=== PATIENT | female | born 1985 | race Caucasian/White ===

== ENCOUNTER 2018-01-28 15:30 | Outpatient (RCR) | payer BC, SELFPAY | END 2018-01-28 15:31 | disposition home or self-care (01) | LOC: PT 15:30 | PROVIDERS: Family Provider Emergency Medicine; PCP Emergency Medicine; Visit Provider Orthopaedic Surgery | DX: S83.241A Other tear of medial meniscus, current injury, right knee, initial encounter (principal) | CPT/HCPCS: 97014; 97016; 97110; G0283 ==

== ENCOUNTER → 2018-12-12 15:56 | Outpatient (CLI) | payer BC, SELFPAY ==
--- NOTE | 2018-12-12 16:02 | XR_ITS ---
EXAM: XR cervical spine 5V HISTORY: Neck pain and numbness down right arm ITS.REASON: pain ORDERING PHYSICIAN: Tiffanie Mackey PATIENT AGE: 33 years COMPARISON: None FINDINGS: There is slight reversal of the cervical lordosis. No malalignment apparent. No fracture or dislocation. The disc spaces are well-preserved. The foramina are widely patent. No significant degenerative change. No cervical ribs. There is mild widening of the space between the transverse process on the left at T1 and the superior aspect of the left first rib. It is uncertain whether this is new or chronic. There is mild upper thoracic scoliosis convex left which could feasibly cause some of this widening. IMPRESSION: 1. No acute fracture of the cervical spine. 2. Reversal lordosis which could be due to patient positioning or muscle spasm. 3. Mild upper thoracic scoliosis with mild widening of the first costo vertebral junction which is of questionable clinical significance and needs to be correlated with patient's symptoms and physical exam
== END ==
PROVIDERS: PCP Emergency Medicine; Visit Provider Nurse Practitioner Family
DX: M54.2 Cervicalgia (principal)
CPT/HCPCS: 72050

== ENCOUNTER 2019-01-02 15:00 | Outpatient (RCR) | payer BC, SELFPAY ==
--- NOTE | 2018-12-18 17:00 | HMH.PTOPEV ---
PT Outpatient Evaluation Rehab PT Outpatient Evaluation Start: 12/18/18 16:34 Freq: Status: Active Protocol: Document 12/18/18 16:34 STELLASTEPHENIE (Rec: 12/18/18 17:00 WALKER [id number]) Electronically Signed By Silvano Coe PT 12/18/18 16:34 Outpatient Therapy Subjective History Subjective History This is tneck and upper back pain.he initial Physical Therapy evaluation for Dory Jimenez. Pt is a 33 y/o female referred to PT for c/o neck and upper back pain. Pt reports an insidious onset of pain ~ 5 years ago, but reports significant increase in last 6 months. Chief Complaint Pain Stiff Symptom Type Ache Throb Sharp Stabbing Tingling Shooting Symptoms Relieved By Nothing Symptoms Aggravated By Lifting Prior Functional Limitations None Current Functional Limitations Lifting Sleeping Recreation Activity Symptom Description Constant but Variable Level of pain today (0-10) 4 Pain scale - at its best (0-10) 2 Pain scale - at its worst (0-10) 10 Cervical Eval Palpation Cervical Muscles R Cervical Paraspinal L Cervical Paraspinal R Upper Trapezius L Upper Trapezius Cervical/Thoracic Palpation Findings Tenderness Spasm Passive Joint Mobility Cervical PIVM Inc: R C2/3 R C3/4 R C5/6 R C6/7 AROM Cervical Spine Extension Active Range of 60 Motion (degrees) Cervical Spine Flexion Active Range of 40 Motion (degrees) Cervical Spine Right Lateral Flexion 40 Active Range of Motion (degrees) Cervical Spine Left Lateral Flexion 40 Active Range of Motion (degrees) Cervical Spine Right Rotation Active 70 Range of Motion (degrees) Cervical Spine Left Rotation Active 70 Range of Motion (degrees) MMT Bilateral Deltoid (C5) 5 Normal Biceps Brachii Strength Grade 5 Normal Wrist Extension Strength Grade 5 Normal Triceps Brachii Strength Grade 5 Normal Wrist Flexion Strength Grade 5 Normal DTR Rt Bic
== END 2019-01-02 15:05 | disposition home or self-care (01) ==
LOC: PT 15:00
PROVIDERS: Visit Provider Nurse Practitioner Family
DX: M54.2 Cervicalgia (principal)
CPT/HCPCS: 97010; 97014; 97110; 97163; G0283

== ENCOUNTER 2021-01-23 13:08 | Emergency (ER) | payer BC, SELFPAY ==
[2021-01-23] VITALS (8 sets, daily range): BP systolic 105–136; BP diastolic 63–91; PULSE 59–84; RESP 16–20; TEMP 36.7; O2SAT 97–100; BMI 33.2
--- NOTE | 2021-01-23 13:03 | ECG_ITS ---
APPROVED REPORT Exam: Resting ECG HR:71 bpm ECG Measurements Heart Rate 71 AXES AR 152 P 37 QRSd 84 QRS 45 QT 394 T 61 QTc 428 Conclusion Normal sinus rhythm with sinus arrhythmia Normal ECG Electronically signed by : Raymond Miller, 01/23/2021 20:24:21
--- NOTE | 2021-01-23 13:18 | XR_ITS ---
PROCEDURE: XR CHEST PORTABLE CLINICAL HISTORY: chest pain COMPARISON: No exams were available for comparison FINDINGS: The cardiomediastinal silhouette and pulmonary vascularity are within normal limits. The lungs are clear without infiltrates, suspicious nodules, or pleural effusions. No acute bony abnormalities. IMPRESSION: No acute findings. Dictated by: Surya Ballesteros MD 01/24/2021 05:56 Surya Ballesteros MD in [place] 01/24/2021 05:56
--- NOTE | 2021-01-23 13:22 | HMH.EDGENADL ---
ED Disposition Clinical Impression: Pleurodynia Thoracic aortic aneurysm Qualifiers: Presence of rupture: without rupture Qualified Code(s): I71.2 - Thoracic aortic aneurysm, without rupture Disposition: Home, Self-Care Condition on Discharge: Fair Instructions: DI for Atypical Chest Pain, DI for Pleurisy, DI for Aortic Aneurysm Additional Instructions: Follow-up with [facility] cardiothoracic surgery, Dr. Rendon. Call tomorrow to make appointment. [phone]. Prednisone as prescribed. [place] as needed for pain. Additional instructions for CHEST PAIN: See your physician as soon as possible for further evaluation. Return immediately if worsening chest pain, vomiting, shortness of breath, fever, coughing of blood. Additional instructions for CONTROLLED SUBSTANCES: You have been prescribed a medication that is a controlled substance. Controlled substances include pain medications known as opiates and sedative nerve medications known as benzodiazepines. Tramadol, fioricet, and gabapentin are also controlled substances. Some common opiates include: Codeine (such as Tylenol #3) Hydrocodone (Vicodin, Lortab, Lorcet, [place]) Oxycodone (Percocet, Percodan, Oxycodone, Oxy IR) Some common benzodiazepines include: Diazepam (Valium) Lorazepam (Ativan) Alprazolam (Xanax) Clonazepam (Klonopin) Oxazepam (Serax) All of these controlled substances are highly addictive and frequently abused. Misuse can and frequently does lead to addiction as well as overdose and . Medication should be stored in a locked cabinet or other secure storage unit. Do not store the medication in a motor vehicle. Short term supplies, 3 days or less, are prescribed because of the highly addictive nature of the medication. Any of the controlled substance medication NOT taken should be disposed of properly and NOT SAVED. The recommended method of disposing of unused medications is: Place the medicines in a sealable plastic bag. If the medicine is a solid, crush it or add water to dissolve it. Add something undesirable (cat litter, coffee grounds, etc.) Dispose of sealed bag in household trash Do not flush or pour unused medicines down a sink or drain. Controlled substances should not be shared, given away or sold. Because of the addictive nature and frequent abuse, these medications are sometimes stolen. These medications should be kept in a safe place where they cannot be stolen. Do not keep them in your car or purse. Lost or stolen prescriptions for controlled substances WILL NOT BE REFILLED in this emergency department, regardless of whether a police report was filed. Prescriptions: Hydrocod/Acet 5/325 mg [[place] 5/325mg tablet] 1 tab PO Q6HP PRN #10 tab PRN Reason: Pain Transmission Status: Sent to [id number] predniSONE [Prednisone 20mg Tab] 20 mg PO BID #10 tab Transmission Status: Pending to [id number] Referrals: PCP,No [Non-Staff] - - Critical Care Critical Care Time: No Attestation: On 01/23/21, the high probability of a clinically significant, sudden or life threatening deterioration of the following system(s) required my full and direct attention, intervention and personal management. The time I documented below is in addition to time spent performing reported procedures but includes the following listed in this critical care notation. Medical Decision Making - Cruzito Inquiry Pt receiving controlled substance: No Vital Signs: 01/23/21 13:09 01/23/21 13:35 01/23/21 14:04 Temperature 98.0 F Temperature Source Oral Pulse Rate [Right Radial] 73 75 69 Respiratory Rate 18 20 17 Blood Pressure [Right Arm] 133/88 105/63 L 106/66 L Blood Pressure Mean [Right Arm] 103 77 79 Blood Pressure Source [Right Arm] Automatic Cuff Blood Pressure Position [Right Arm] Sitting 02 Sat by Pulse Oximetry 100 97 97 Oxygen Delivery Method Room Air 01/23/21 15
[2021-01-23 13:28] LABS: Basophils % 0.5 % (0.1-2.0); Eosinophils # 0.3 K/mm3 (0.0-0.4); Eosinophils % 4.6 % (0.1-12.0); Hematocrit 40.8 % (37.0-47.0); Hemoglobin 13.8 g/dL (12.2-16.2); Lymphocytes # 1.8 K/mm3 (0.7-4.5); Lymphocytes % 24.8 % (10-50); Mean Corpuscular HGB Conc 33.9 g/dL (31.8-35.4); Mean Corpuscular Hemoglobin 29.8 pg (27.0-31.2); Mean Corpuscular Volume 87.9 fl (81-99); Mean Platelet Volume 9.6 fl (7.4-10.4); Monocytes # 0.3 K/mm3 (0.1-1.0); Monocytes % 3.9 % (1.7-9.3); Neutrophils # 4.7 K/mm3 (1.8-7.8); Platelet Count 217 K/mm3 (142-424); Red Blood Count 4.64 M/mm3 (4.20-5.40); Red Cell Distribution Width 13.5 % (11.5-17.5); White Blood Count 7.1 K/mm3 (4.8-10.8)
[2021-01-23 13:32] LABS: Chloride 105 mmol/L (98-107); Sodium 140 mmol/L (136-145)
[2021-01-23 13:35] LABS: Blood Urea Nitrogen 16 mg/dl (7-17); Calcium 9.4 mg/dl (8.4-10.2); Carbon Dioxide 27 mmol/L (22.0-30.0); Creatinine Clearance Estimated 172 mL/min (50-200); Estimated Glomerular Filt Rate 82 ml/min (>60); GFR (African American) 99 ML/MIN (>60); Glucose 105 mg/dl (74-100)
[2021-01-23 13:36] LABS: Lipase 83 U/L (23-300)
[2021-01-23 13:48] LABS: Troponin I < 0.01 ng/ml (0.00-0.034)
--- NOTE | 2021-01-23 13:57 | CT_ITS ---
PROCEDURE: CT ANGIO CHEST CLINCIAL INDICATION: chest pain, elev d-dimer COMPARISON: No exams were available for comparison TECHNIQUE: IV Contrast: 70ML Isovue 370 Axial images obtained with sagittal and coronal reformats. All CT scans at the facility use one or more dose reduction, viz: automated exposure control, ma/kV adjustment per patient size (including targeted exams where dose is matched to indication, i.e. head), or iterative reconstruction technique. FINDINGS: HEART AND MEDIASTINAL STRUCTURES: No evidence of pulmonary embolus.. The thyroid gland is enlarged on both sides. There is substernal extension on the. The trachea is slightly deviated toward the right. There is prominence of the ascending thoracic aorta. The definite dimensions is difficult to evaluate due to un gated cardiac motion measuring 3.5-4 cm. On the axial images the ascending aorta measures up to 4.2 cm however, this may be falsely elevated due to the motion. LUNGS AND PLEURAL SPACES: Calcified granuloma left upper lobe. No lobar consolidation or collapse. BONY STRUCTURES: No acute bony abnormalities apparent. UPPER ABDOMEN: Unremarkable. ADDITIONAL FINDINGS: No other significant abnormalities. IMPRESSION: 1. No evidence of pulmonary embolus. 2. Prominence of the ascending aorta. Dimensions are difficult to accurately measure due to cardiac motion artifact. Consider CT angio of the aorta for more thorough evaluation. Dictated by: Surya Ballesteros MD 01/24/2021 07:27 Surya Ballesteros MD in [place] 01/24/2021 07:27
--- NOTE | 2021-01-23 15:53 | PC.NURSE ---
pt to CT
--- NOTE | 2021-01-23 17:43 | PC.NURSE ---
ESME BOWSER speaking with [facility]
[2021-01-23 17:49] LABS: Troponin I < 0.01 ng/ml (0.00-0.034)
== END 2021-01-23 18:41 | disposition home or self-care (01) ==
PROVIDERS: Emergency Provider Emergency Medicine; PCP Emergency Medicine
DX: R07.81 Pleurodynia (principal); I71.2 Thoracic aortic aneurysm, without rupture; F17.210 Nicotine dependence, cigarettes, uncomplicated; Z88.0 Allergy status to penicillin
CPT/HCPCS: 36415; 71045; 71275; 80048; 83690; 84484; 85025; 85378; 93005; 96374; 96375; 99283; J2405; Q9967

== ENCOUNTER → 2021-01-31 15:26 | Outpatient (CLI) | payer BC, SELFPAY ==
[2021-01-31 16:35] LABS: C-Reactive Protein 0.3 mg/L (0-4)
[2021-01-31 16:59] LABS: Thyroid Stimulating Hormone 7.39 uIU/mL (0.465-4.68)
[2021-01-31 17:00] LABS: Erythrocyte Sedimentation Rate 15 mm/hr (0-20)
== END ==
PROVIDERS: Visit Provider Emergency Medicine
DX: R07.81 Pleurodynia (principal); I71.2 Thoracic aortic aneurysm, without rupture
CPT/HCPCS: 84439; 84443; 85651; 86140

== ENCOUNTER → 2021-03-01 17:57 | Outpatient (CLI) | payer BC, SELFPAY ==
[2021-03-01 18:40] LABS: Free T4 (Free Thyroxine) 0.91 ng/dl (0.78-2.19)
[2021-03-01 18:54] LABS: Thyroid Stimulating Hormone 6.42 uIU/mL (0.465-4.68)
== END ==
PROVIDERS: Visit Provider Emergency Medicine
DX: Z00.00 Encounter for general adult medical examination without abnormal findings (principal); Z79.899 Other long term (current) drug therapy
CPT/HCPCS: 84439; 84443

== ENCOUNTER 2021-06-10 09:49 | Day surgery (SDC) | payer BC, SELFPAY ==
[2021-06-06 15:13] VITALS: BMI 34.0
--- NOTE | 2021-06-07 14:53 | SUR.PREOP ---
Discussed pt health history with Byron Reyes CRNA. Cardiac clearance is not needed per anesthesia for this patient.
[2021-06-10] VITALS (7 sets, daily range): BP systolic 114–137; BP diastolic 65–87; PULSE 50–81; RESP 16–18; TEMP 36.4–36.6; O2SAT 97–100
[2021-06-10 09:39] LABS: Coronavirus 19, PCR Not Detected (NotDetected); Influenza A, PCR Not Detected (NotDetected); Influenza B, PCR Not Detected (NotDetected)
--- NOTE | 2021-06-10 13:00 | FL_ITS ---
PROCEDURE: FL ERCP CLINICAL INDICATION: right upper quadrant pain COMPARISON: No exams were available for comparison FINDINGS: Fluoroscopy time: 1.1 minute. Multiple images submitted shows the endoscope in place with contrast injected into the common bile duct. There has been a prior cholecystectomy. Common bile duct is poorly opacified. No obvious common duct stones or biliary dilatation. No images of the pancreatic duct injection are submitted. IMPRESSION: No obvious common duct stones. Normal caliber common bile duct Dictated by: Surya Ballesteros MD 06/14/2021 18:30 Surya Ballesteros MD in [place] 06/14/2021 18:30
[2021-06-10 13:21] LABS: Urine Pregnancy, HCG Qual. Negative (Negative)
--- NOTE | 2021-06-10 13:38 | P.PN_ITS ---
[facility] Anesthesia Checklist - Patient Identification Patient Identification: Arm Band - Structural Data Admitted From: Home Planned Operative Procedure/s: ERCP Consent for Planned Operative Procedure(s) Verified: Yes - NPO Status Verified Time NPO: 00:00 - Airway Assessment C-Spine Mobility Assessed: Yes TMJ Mobility Assessed: Yes Dentition: Good Dentition - Neurological Assessment Level of Consciousness: Awake Hx Seizures: No Numbness or tingling in extremities: No - Anesthesia Plan Anesthesia Risk discussed: Yes Anesthesia Plan: Verified ASA Class: II Anesthesia Type: MAC [facility] History I have reviewed the patient's past medical history: Yes Medical History: Reports:: Aneurysm Denies:: Cancer, Diabetes Mellitus Type 1, Diabetes Mellitus Type 2, Internal Pacemaker, MRSA, Seizures *Have you ever received a pneumonia vaccine?: No *Have you received a flu vaccine this season?: No Other Medical History: Reports: Sinus Problems Anesthesia experience/problems:: None Laterality Cases: Right: Arthroscopy Knee, Bilateral: Tonsillectomy Other Surgeries: Yes: No Previous Surgery, Cancer Surgery, Cholecystectomy. No: Pacemaker Amputation: No Fractures: No - *Social History Last grade of school completed: High school graduate Smoking Status: Current every day smoker Tobacco Type: cigarettes # Packs/Day (cigarettes): 1 Alcohol Intake: never Alcohol Intake Frequency:: holidays/special occasions only Substance Use Type: denies use *Occupational Status:: employed Housing: house Household Members: spouse, children *Travel in the last 8 weeks: None Family Hx:: Non-contributory
--- NOTE | 2021-06-10 14:46 | HMH.PROC ---
[facility] Procedure Note Procedure Note:: ERCP procedure Report: Endoscopic retrograde cholangiopancreatography with biliary sphincterotomy and balloon extraction Endoscopist: Bob Rm II, MD Referring Physician: Kishan Valdez MD Date of Procedure: June 10, 2021 Equipment: Olympus 180 side viewing endoscope duodenoscope Sedation: MAC sedation Indication: Mrs. Jimenez is a 36-year-old female with right upper quadrant abdominal pain that does radiate into the back. She did go to the emergency department on January 23, 2021. At that time, she did have an extensive evaluation. Her pancreatic chemistries and liver chemistries were essentially normal. Her lipase level was 83. She had ruled out for DC. She had normal sed rate, C-reactive protein, hemoglobin and hematocrit. Her CAT scan did show a 4.2 cm thoracic ascending aortic aneurysm. She did see the cardiothoracic service at the [facility] (). She had urgent cholecystectomy in the summer 2015 secondary to acute cholecystitis and gallstones. The right-sided pain will radiate into the back intermittently. She does have bloating, gassiness and hiccups. She did improve some with pantoprazole. She reports no weight loss. She does have some fullness, early satiety and bowel irregularity. She does alternate between constipation and diarrhea. She reports no melena or hematochezia. Procedure: Prior to the procedure, a history and physical exam was performed, and patient's medications and allergies were reviewed. The risks, benefits and alternatives of the sedation and procedure were discussed with the patient. All questions were answered and informed consent was obtained. The patient was brought to the fluoroscopic radiology room. Patient identification and proposed procedure were verified by the physician and the nurse. The patient was placed in a swimmer's position between left lateral decubitus and prone position and the scope was passed under direct vision. Throughout the procedure, the patient's blood pressure, pulse, and oxygen saturations were monitored continuously. The ERCP was accomplished without difficulty. The patient tolerated the procedure well. Findings: The side-viewing duodenoscope was passed directly into the upper esophagus and advanced to the 2nd portion of the duodenum. There was a small hiatal hernia with nonerosive GERD. There was some duodenal reflux with mild reactive gastropathy of the antrum. The duodenum was normal. The ampulla was well visualized. Both the pancreatic duct and common bile duct were freely cannulated. The pancreatogram showed a normal 2 to 3 mm pancreatic duct with normal filling of the head, neck, body and a portion of the tail of the pancreas. There were no ductular ectasias. There was a normal genu and normal uncinate and accessory ducts. Next, the common bile duct was cannulated. The cholangiogram showed a 5 mm common bile duct with normal filling of the intrahepatic biliary system. There was a short cystic duct stump. There was minimal bile or contrast drainage after 5 minutes. Next, a biliary sphincterotomy was performed for sphincter of Oddi dysfunction. There was bile and contrast that then exuded from the ampulla with excellent decompression of the biliary tree. There was also some specks of yellow debris/sludge (minor choledocholithiasis). Because of this, a 9 mm sweeping balloon was partially inflated and swept through the biliary system with the passage of mills bile and minimal debris. There was excellent decompression of the biliary system. Fluoroscopically, there was some trapped gas/stool at the hepatic flexure. Impression: 1. 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 I do feel that she has some functional intestinal pain/IBS. I do feel
== END 2021-06-10 16:06 | disposition home or self-care (01) ==
LOC: OUTP 09:49
PROVIDERS: PCP Emergency Medicine; Visit Provider Internal Medicine Gastroenterology
PROC: (CPT 43262; principal; 2021-06-10 13:00)
DX: K83.4 Spasm of sphincter of Oddi (principal); K80.50 Calculus of bile duct without cholangitis or cholecystitis without obstruction; Z86.79 Personal history of other diseases of the circulatory system; Z72.0 Tobacco use; E03.9 Hypothyroidism, unspecified; F41.9 Anxiety disorder, unspecified; Z88.0 Allergy status to penicillin; Z79.899 Other long term (current) drug therapy
CPT/HCPCS: 43262; 43264; 74330; 81025; Q9967; U0003

== ENCOUNTER 2021-06-28 17:05 | Emergency (ER) | payer BC, SELFPAY ==
[2021-06-28 17:41] VITALS: BP 130/79; PULSE 67; RESP 18; TEMP 36.6; O2SAT 97; BMI 33.9
[2021-06-28 19:00] VITALS: BP 141/90; PULSE 67; RESP 18; TEMP 36.8; O2SAT 99; BMI 33.9
--- NOTE | 2021-06-28 19:46 | HMH.EDUTC ---
[facility] [place] Impression: Cellulitis and abscess of right leg Disposition: Home, Self-Care Condition on Discharge: Good Instructions: Cellulitis, DI for Skin Abscess, Mupirocin, Trimethoprim/Sulfamethoxazole (Alternative Therapy), Cephalexin Additional Instructions: *Start antibiotic(s) immediately and be sure to take as ordered for the FULL length of time although you may be feeling better or start to see improvement in the next 24-48 hours *Monitor closely. Outlined redness so that you can monitor easier. Follow up immediately for new or worsening symptoms including but not limited to redness, swelling, streaking from site fever or chills. *Warm compress 15 minutes 3-4 times day *Never squeeze or pop these on your own. Seek immediate medical attention next time this occurs *Monitor Temp. Tylenol every 4 hours as needed and ibuprofen every 6 hours as needed (as long as your primary care doctor has told you that it is ok to take both. For fever, aches, pain. ER if no less that 101 despite Tylenol and ibuprofen Follow up with your family doctor/primary care physician in the next 48-72 hours if no improvement Return if needed Prescriptions: Sulfamethoxazole/Trimethoprim [Bactrim DS tablet] 1 each PO BID 7 Days #14 tab Transmission Status: Pending to [facility] cephALEXin [cephALEXin 500mg capsule*] 500 mg PO Q6H 7 Days #28 cap Transmission Status: Pending to [facility] Mupirocin Calcium [Mupirocin 2% Cream 15gm] 1 applicatio TP TID 10 Days #1 tube Transmission Status: Pending to [facility] Referrals: Kishan Valdez MD [Primary Care Provider] - As needed Time of Disposition: 19:56 Medical Decision Making - Cruzito Inquiry Pt receiving controlled substance: No Cruzito was queried for this patient: No Vital Signs: 06/28/21 17:41 06/28/21 19:00 Temperature 97.8 F 98.2 F Temperature Source Oral Oral Pulse Rate [Left Radial] 67 67 Respiratory Rate 18 18 Blood Pressure [Left Arm] 130/79 141/90 H Blood Pressure Mean [Left Arm] 96 107 Blood Pressure Source [Left Arm] Automatic Cuff Automatic Cuff Blood Pressure Position [Left Arm] Sitting Sitting 02 Sat by Pulse Oximetry 97 99 Oxygen Delivery Method Room Air Room Air Medical Decision Narrative: Patient states that she has taken cephalexin and bactrim multiple times in the past without reactions or complication [facility] [place] General Stated complaint: possible bite by something R Leg Time Seen by Provider: 06/28/21 19:46 Mode of Arrival: Ambulatory Source of Information: Patient Limitations: No Limitations Description of Symptoms (Recalled from Triage Doc. by RN): PATIENT C/O BITE TO RIGHT THIGH X 3 DAYS HEENT Symptoms (Recalled from RN notes): No Resp Symptoms (Recalled from RN notes): No Skin Symptoms (Recalled from RN notes): No MS Symptoms (Recalled from RN notes): No Functional Status (Recalled from RN notes): WNL - History of Present Illness Provider Complaint: Patient state that she has a red hard area on her right upper thigh area with surrounding redness States that she is not sure if it is a bite or infected hair but it has continued to get worse and is now warm to touch so she came in - Related Data Previous Rx's Medication Instructions Recorded clonazepam 0.5 mg tablet 0.5 mg PO BID #60 tab 06/07/21 levothyroxine 50 mcg tablet 50 mcg PO DAILY #90 tab 06/07/21 pantoprazole 40 mg tablet,delayed 40 mg PO DAILY #90 tab 06/07/21 release Mupirocin Calcium [Mupirocin 2% 1 applicatio TP TID 10 Days #1 tube 06/28/21 Cream 15gm] Sulfamethoxazole/Trimethoprim 1 each PO BID 7 Days #14 tab 06/28/21 [Bactrim DS tablet] cephALEXin [cephALEXin 500mg 500 mg PO Q6H 7 Days #28 cap 06/28/21 capsule*] Allergies Allergy/AdvReac Type Severity Reaction Status Date / Time Penicillins [PENICILLINS] Allergy Unknown Verified 06/28/21 18:28 - Worker's Comp Is this a Worker's Comp case?: No
[2021-06-28 20:05] VITALS: BP 141/90; PULSE 67; RESP 18; TEMP 36.8; O2SAT 99
== END 2021-06-28 20:06 | disposition home or self-care (01) ==
PROVIDERS: Emergency Provider Nurse Practitioner; PCP Emergency Medicine
DX: L03.115 Cellulitis of right lower limb (principal); F41.9 Anxiety disorder, unspecified; E03.9 Hypothyroidism, unspecified; F17.210 Nicotine dependence, cigarettes, uncomplicated; Z88.0 Allergy status to penicillin
CPT/HCPCS: 99202; G0463

== ENCOUNTER → 2021-11-10 12:49 | Outpatient (CLI) | payer BC, SELFPAY | PROVIDERS: Visit Provider Nurse Practitioner | DX: U07.1 COVID-19 (principal) | CPT/HCPCS: C9803; U0003; U0005 ==

== ENCOUNTER 2022-05-04 13:41 | Emergency (ER) | payer BC, SELFPAY ==
[2022-05-04 13:52] VITALS: BP 119/75; PULSE 78; RESP 16; TEMP 36.9; O2SAT 98; BMI 32.1
[2022-05-04 14:06] LABS: Color,Urine Amber (Yellow)
[2022-05-04 14:07] LABS: Apearance,Urine Turbid (Clear); Protein,Urine 1+ (Negative); Specific Gravity, Urine 1.015 (1.005-1.030)
--- NOTE | 2022-05-04 14:07 | HMH.EDUTC ---
[facility] [place] Disposition Clinical Impression: UTI (urinary tract infection) Qualifiers: Urinary tract infection type: site unspecified Hematuria presence: with hematuria Qualified Code(s): N39.0 - Urinary tract infection, site not specified Disposition: Home, Self-Care Condition on Discharge: Good Instructions: Urine Culture, DI for Urinary Tract Infection (UTI), Phenazopyridine Additional Instructions: Drink plenty of fluids. Take tylenol for pain or fever. Take the medications as directed. Follow up with your regular doctor. GO TO THE ER FOR ANY WORSENING SYMPTOMS The pyridium will make your urine turn orange, this is an expected side effect. It will stain your clothes if it comes into contact with them. We will culture the urine. That will tell what bacteria is causing your infection and which antibiotics will treat it best. Sometimes the first antibiotic we prescribe turns out to not work against different bacteria. So, make sure you follow up within 3 days if you are not getting better. Prescriptions: Ondansetron [Zofran 4mg ODT] 4 mg PO Q8HP PRN #20 tab PRN Reason: Nausea Transmission Status: Received by [facility] Sulfamethoxazole/Trimethoprim [Bactrim DS tablet] 1 each PO BID 7 Days #14 tab Transmission Status: Received by [facility] Phenazopyridine HCl [Pyridium 200mg Tablet] 200 pow PO TID #6 tab Transmission Status: Received by [facility] Referrals: Kishan Valdez MD [Primary Care Provider] - Time of Disposition: 14:17 Medical Decision Making - Medical Records Medical records reviewed: No: I reviewed the patient's medical records. - Cruzito Inquiry Pt receiving controlled substance: No Vital Signs: 05/04/22 13:52 05/04/22 14:22 Temperature 98.5 F 98.5 F Temperature Source Oral Pulse Rate 78 Pulse Rate [Left Radial] 78 Respiratory Rate 16 16 Blood Pressure 119/75 Blood Pressure [Right Arm] 119/75 Blood Pressure Mean [Right Arm] 89 02 Sat by Pulse Oximetry 98 - Lab Data Lab results reviewed: Yes: I reviewed the patient's lab results. Lab Results 05/04/22 14:00: Urine Color Toma, Urine Appearance Turbid, Urine pH 5.0, Ur Specific [place] 1.015, Urine Protein 1+, Urine Glucose (UA) Trace, Urine Ketones Small, Urine Blood Negative, Urine Nitrate Positive A, Urine Bilirubin 3+ A, Urine Urobilinogen >=8, Ur Leukocyte Esterase 3+ A Orders (Tests/Meds): ORDERS Category Date Time Status Urine Culture Stat Micro 05/04/22 14:00 Received [facility] [place] HPI - General Stated complaint: possible uti Time Seen by Provider: 05/04/22 14:07 Description of Symptoms (Recalled from Triage Doc. by RN): patient comes in today for complaints of a possible uti, patient states symptoms began sunday. patient has been taking azo otc HEENT Symptoms (Recalled from RN notes): No Resp Symptoms (Recalled from RN notes): No Skin Symptoms (Recalled from RN notes): No MS Symptoms (Recalled from RN notes): No Functional Status (Recalled from RN notes): wnl - History of Present Illness Provider Complaint: She states that for the past 3 days she has had worsening urinary frequecy, dysuria and she has been feeling bad. She feels like she has a uti. - Related Data Home Medications Medication Instructions Recorded Confirmed nebivolol 5 mg tablet 5 mg PO tab 12/30/21 04/26/22 Previous Rx's Medication Instructions Recorded hydrochlorothiazide 12.5 mg tablet See Rx Instructions .ROUTE 04/03/22 .COMPLEX #15 tab levothyroxine 50 mcg tablet See Rx Instructions .ROUTE 04/20/22 .COMPLEX #30 tab clonazepam 0.5 mg tablet 0.5 mg PO BID #60 tab 04/26/22 pantoprazole 40 mg tablet,delayed See Rx Instructions .ROUTE 04/26/22 release .COMPLEX #30 tab semaglutide (weight loss) 1 mg/0.5 1.7 mg SQ WEEKLY #2 ml 04/26/22 mL subcutaneous pen injector Ondansetron [Zofran 4mg ODT] 4 mg PO Q8HP PRN #20 tab 05/04/22 Phenazopy
[2022-05-04 14:08] LABS: Bilirubin,Urine 3+ (Negative); Blood, Urine Negative (Negative); Glucose,Urine (UA) Trace (Negative); Ketones,Urine SMALL (Negative); UTC Leukocyte Esterase,Urine 3+ (Negative); UTC Nitrate,Urine Positive (Negative); Urobilinogen,Urine >=8 EU/dl (0.2)
[2022-05-04 14:22] VITALS: BP 119/75; PULSE 78; RESP 16; TEMP 36.9
== END 2022-05-04 14:22 | disposition home or self-care (01) ==
PROVIDERS: Emergency Provider Nurse Practitioner Family; PCP Emergency Medicine
DX: N39.0 Urinary tract infection, site not specified (principal)
CPT/HCPCS: 81003; 87086; 99212; G0463

== ENCOUNTER 2022-07-01 17:14 | Emergency (ER) | payer BC, SELFPAY ==
--- NOTE | 2022-07-01 17:43 | PC.NURSE ---
PER REGISTRATION, PATIENT IS WITH DAUGHTER WHO IS A PATIENT IN ER AT THIS TIME.
--- NOTE | 2022-07-01 19:36 | PC.NURSE ---
REGISTRATION STATES THAT PATIENT WILL NOT BE SEEN IN UTC BECAUSE HER DAUGHTER WILL BE IN ER FOR A WHILE
[2022-07-01 19:38] VITALS: BP 0/0; PULSE 0; RESP 0; TEMP -17.7; TEMP 0
== END 2022-07-01 19:39 | disposition left against medical advice (07) ==
LOC: UTC 19:37
PROVIDERS: Emergency Provider Nurse Practitioner Family; PCP Family Medicine
DX: Z53.21 Procedure and treatment not carried out due to patient leaving prior to being seen by health care provider (principal)

== ENCOUNTER 2022-07-08 11:54 | Emergency (ER) | payer BC, SELFPAY ==
[2022-07-08 13:33] VITALS: BP 107/72; PULSE 70; RESP 17; TEMP 36.7; O2SAT 100; BMI 30.7
--- NOTE | 2022-07-08 13:43 | EXP.UTC ---
Discharge Plan Disposition Patient Disposition: Home, Self-Care Condition: Good Prescriptions Prescriptions: New prednisone [prednisone] 20 mg tablet 20 mg PO BID 5 Days Qty: 10 0RF fluticasone propionate 50 mcg/actuation [place],Suspension 1 spray INTRANASAL BID Qty: 1 0RF Rx Instructions: administer into each nostril cefdinir [cefdinir] 300 mg capsule 300 mg PO BID 10 Days Qty: 20 0RF No Action clonazepam 0.5 mg tablet 0.5 mg PO BID Qty: 60 2RF Wegovy 2.4 mg/0.75 mL pen injector 2.4 mg SQ WEEKLY Qty: 3 4RF hydrochlorothiazide 12.5 mg tablet See Rx Instructions .ROUTE .COMPLEX Qty: 15 2RF Dose Instruction: TAKE 1/2 TABLET BY MOUTH ONCE A DAY Rx Instructions: TAKE 1/2 TABLET BY MOUTH ONCE A DAY levothyroxine 50 mcg tablet See Rx Instructions .ROUTE .COMPLEX Qty: 30 3RF Dose Instruction: TAKE ONE TABLET BY MOUTH ONCE A DAY FOR THYROID Rx Instructions: TAKE ONE TABLET BY MOUTH ONCE A DAY FOR THYROID pantoprazole 40 mg tablet,delayed release (DR/EC) See Rx Instructions .ROUTE .COMPLEX Qty: 30 2RF Dose Instruction: TAKE ONE TABLET BY MOUTH ONCE A DAY Rx Instructions: TAKE ONE TABLET BY MOUTH ONCE A DAY nebivolol 5 mg tablet See Rx Instructions .ROUTE .COMPLEX Qty: 30 3RF Dose Instruction: TAKE ONE TABLET BY MOUTH ONCE A DAY Rx Instructions: TAKE ONE TABLET BY MOUTH ONCE A DAY phenazopyridine 200 MG tablet 200 pow PO TID Qty: 6 0RF sulfamethoxazole-trimethoprim 1 EACH tablet 1 each PO BID 7 Days Qty: 14 0RF ondansetron 4 MG tablet,disintegrating 4 mg PO Q8HP PRN (Reason: Nausea) Qty: 20 0RF Referrals Follow up/Referrals: Kishan Valdez MD [Primary Care Provider] - See instructions Clinical Impressions Clinical Impression: Right otitis media Instructions Patient Instructions: DI for Otitis Media (Middle Ear Infection)-Child Discharge ED Provider: Nilsa Vargas [facility] [place] General Stated complaint: right ear drainage, congestion Mode of Arrival: Ambulatory Source of Information: Patient Limitations: No Limitations Time Seen by Provider: 07/08/22 14:01 Description of Symptoms (Recalled from Triage Doc. by RN): patient comes in with complaints of right ear pain. symptoms have been ongoing for 1 month. HEENT Symptoms (Recalled from RN notes): Yes Resp Symptoms (Recalled from RN notes): No Skin Symptoms (Recalled from RN notes): No MS Symptoms (Recalled from RN notes): No Functional Status (Recalled from RN notes): n/a History of Present Illness Provider Complaint: Right ear pain and drainage X 3 weeks. Also sinus pain and pressure. Pain radiates into neck. Has recurrent issues with that ear. Tried Mucinex with little relief. Onset (ago): week(s) (3) Radiation: neck Severity: moderate Severity scale (1-10): 5 Consistency: constant Relieving factors: none Exacerbating factors: none Associated symptoms: denies other symptoms Treatments prior to arrival: other (Mucinex) Related Data Previous Rx's Medication Instructions Recorded hydrochlorothiazide 12.5 mg tablet See Rx Instructions .Route 04/03/22 .COMPLEX #15 tabs levothyroxine 50 mcg tablet See Rx Instructions .Route 04/20/22 .COMPLEX #30 tabs clonazepam 0.5 mg tablet 0.5 mg PO BID Anxiety #60 tabs 04/26/22 pantoprazole 40 mg tablet,delayed See Rx Instructions .Route 04/26/22 release .COMPLEX #30 tabs ondansetron 4 mg disintegrating 4 mg PO Q8HP PRN Nausea #20 tabs 05/04/22 tablet phenazopyridine 200 mg tablet 200 pow PO TID #6 tabs 05/04/22 sulfamethoxazole 800 1 each PO BID 7 days #14 tabs 05/04/22 mg-trimethoprim 160 mg tablet semaglutide (weight loss) 2.4 2.4 mg (0.75 mL) SQ WEEKLY #3 mL 05/17/22 mg/0.75 mL subcutaneous pen injector (Adis) nebivolol 5 mg tablet See Rx Instructions .Route 07/03/22 .COMPLEX #30 tabs cefdinir 300 mg capsule 300 mg PO BID 10 days #20 caps 07/08/22 fluticasone propiona
[2022-07-08 14:13] VITALS: BP 107/72; PULSE 70; RESP 17; TEMP 36.7
== END 2022-07-08 14:14 | disposition home or self-care (01) ==
PROVIDERS: Emergency Provider Physician Assistant; PCP Emergency Medicine
DX: H66.91 Otitis media, unspecified, right ear (principal)
CPT/HCPCS: 99212; G0463

== ENCOUNTER 2023-03-05 16:25 | Emergency (ER) | payer BC, SELFPAY ==
[2023-03-05 16:25] VITALS: BP 148/88; PULSE 84; RESP 20; TEMP 36.6; O2SAT 98; BMI 31.7
--- NOTE | 2023-03-05 16:49 | EXP.UTC ---
Discharge Plan Disposition Patient Disposition: Home, Self-Care Condition: Good Prescriptions Prescriptions: New cefdinir 300 mg capsule 300 mg PO BID Qty: 20 0RF fluticasone propionate [Flonase Allergy Relief] 50 mcg/actuation spray,suspension 1 - 2 spray intranasal DAILY Qty: 16 0RF Rx Instructions: administer into each nostril No Action clonazepam 0.5 mg tablet 0.5 mg PO BID Qty: 60 2RF levothyroxine 50 mcg tablet See Rx Instructions .ROUTE .COMPLEX Rx Instructions: TAKE ONE TABLET BY MOUTH ONCE A DAY FOR THYROID pantoprazole 40 mg tablet,delayed release (DR/EC) See Rx Instructions .ROUTE .COMPLEX Rx Instructions: TAKE ONE TABLET BY MOUTH ONCE A DAY hydrochlorothiazide 12.5 mg tablet See Rx Instructions .ROUTE .COMPLEX Rx Instructions: TAKE 1/2 TABLET BY MOUTH ONCE A DAY nebivolol 5 mg tablet See Rx Instructions .ROUTE .COMPLEX Rx Instructions: TAKE ONE TABLET BY MOUTH ONCE A DAY Wegovy 2.4 mg/0.75 mL pen injector 2.4 mg SQ WEEKLY Referrals Follow up/Referrals: Phoebe Nguyen APRN [Primary Care Provider] - See instructions Activity Restrictions/Add. Instructions Additional Instructions/Restrictions: *Monitor Temp, Over the counter Motrin or Tylenol as directed/as needed Tylenol every 4 hours and Motrin every 6 hours (as long as your family doctor has told you that you can take it) for fever or pain. and straight to ER if unable to lower temp less than 101.0 after medication given *Warm salt water gargles may help to soothe the throat *Throat Lozenges? *Warm fluids like tea with honey may help to soothe the throat? *Sleep elevated *Humidifier/Vaporizer *Flonase 2 sprays in each nostril daily but be aware that it may take 2-3 days before you notice improvement *Bromfed may cause drowsiness. Know how it effects you (your child) before driving, caring for small child, or sending your child to school. Not other antihistamines/allergy medications while taking bromfed Your throat swab was sent for culture. Those results are typically sent to your primary care. Be sure to follow up in 2-3 days with your family doctor/primary care physician if no improvement so they can review those result and treat if necessary. If you don?t have a primary care doctor, I recommend you get one but in the mean time, you will have to return to a walk in clinic Follow up IMMEDIATELY for new or worsening symptoms or no Noticeable improvement over the next 48-72 hours. 911 for difficulty breathing or swallowing Clinical Impressions Clinical Impression: Right otitis media Instructions Patient Instructions: Middle Ear Infection, Cefdinir Discharge ED Provider: Patti Purcell [facility] [place] HPI General Stated complaint: sore throat, bilateral ear pain Mode of Arrival: Ambulatory Source of Information: Patient Limitations: No Limitations Time Seen by Provider: 03/05/23 16:49 Description of Symptoms (Recalled from Triage Doc. by RN): bilateral ear pain, sore throat HEENT Symptoms (Recalled from RN notes): Yes Resp Symptoms (Recalled from RN notes): No Skin Symptoms (Recalled from RN notes): No MS Symptoms (Recalled from RN notes): No Functional Status (Recalled from RN notes): n/a History of Present Illness Provider Complaint: Patient states she has been having sore throat, bilateral ear pain and pressure and drainage in the back of her throat States that she wasnt sure if she may have had strep throat again or ear infection so she came in Related Data Home Medications Medication Instructions Recorded Confirmed hydrochlorothiazide 12.5 mg tablet See Rx Instructions .Route 03/05/23 03/05/23 .COMPLEX . levothyroxine 50 mcg tablet See Rx Instructions .Route 03/05/23 03/05/23 .COMPLEX . nebivolol 5 mg tablet See Rx Instructions .Route 03/05/23 03/05/23 .COMPLEX . pantoprazole 40 mg tablet,delayed See Rx Instructions .Route
[2023-03-05 16:52] LABS: UTC Strep Screen (Rapid) Negative (Negative)
[2023-03-05 17:04] VITALS: BP 148/88; PULSE 84; RESP 18; TEMP 36.6; O2SAT 98
== END 2023-03-05 17:04 | disposition home or self-care (01) ==
PROVIDERS: Emergency Provider Nurse Practitioner; PCP Nurse Practitioner Family
DX: H66.91 Otitis media, unspecified, right ear (principal); F17.210 Nicotine dependence, cigarettes, uncomplicated; J02.9 Acute pharyngitis, unspecified
CPT/HCPCS: 87880; 99212; 99214; G0463

== ENCOUNTER 2023-11-25 11:41 | Emergency (ER) | payer BC, SELFPAY ==
[2023-11-25 12:20] VITALS: BP 132/78; PULSE 97; RESP 18; TEMP 37.3; O2SAT 99; BMI 32.5
--- NOTE | 2023-11-25 12:48 | EXP.UTC ---
Discharge Plan Disposition Patient Disposition: Home, Self-Care Condition: Good Prescriptions Prescriptions: New promethazine-DM 6.25-15 mg/5 mL Syrup 5 ml PO Q6H PRN (Reason: Cough) Qty: 240 0RF azithromycin [Zithromax] 250 mg tablet 250 mg PO UD DOSE PK Qty: 6 0RF Rx Instructions: Take two (2) tablets today, then one (1) tablet days #2 thru #5 methylprednisolone 4 mg Tablets,Dose Pack 4 mg PO DIRECTED 6 Days Qty: 21 0RF Rx Instructions: Take 1 pack as directed for 6 days oseltamivir [Tamiflu] 75 mg capsule 75 mg PO BID Qty: 10 0RF No Action clonazepam 0.5 mg tablet 0.5 mg PO BID Qty: 60 2RF levothyroxine 75 mcg tablet 75 mcg PO DAILY pantoprazole 40 mg tablet,delayed release (DR/EC) See Rx Instructions .ROUTE .COMPLEX Rx Instructions: TAKE ONE TABLET BY MOUTH ONCE A DAY hydrochlorothiazide 12.5 mg tablet See Rx Instructions .ROUTE .COMPLEX Rx Instructions: TAKE 1/2 TABLET BY MOUTH ONCE A DAY nebivolol 5 mg tablet See Rx Instructions .ROUTE .COMPLEX Rx Instructions: TAKE ONE TABLET BY MOUTH ONCE A DAY Wegovy 2.4 mg/0.75 mL pen injector 2.4 mg SQ WEEKLY fluticasone propionate [Flonase Allergy Relief] 50 mcg/actuation spray,suspension 1 - 2 spray intranasal DAILY Qty: 16 0RF Rx Instructions: administer into each nostril Referrals Follow up/Referrals: Phoebe Nguyen APRN [Primary Care Provider] - See instructions Activity Restrictions/Add. Instructions Additional Instructions/Restrictions: Drink plenty of fluids. Take tylenol or ibuprofen for pain or fever. Take the medications as directed. Follow up with your regular doctor. GO TO THE ER FOR ANY WORSENING SYMPTOMS Clinical Impressions Clinical Impression: Sinusitis, Influenza B Instructions Patient Instructions: DI for Sinusitis, DI for Influenza -- Adult, Oseltamivir Discharge ED Provider: Anand Hay [facility] [place] General Stated complaint: congestion cough Time Seen by Provider: 11/25/23 12:48 History of Present Illness Provider Complaint: She states that for the past 1 day she has had fever, chills, malaise, and body aches. She has had sinus congestion and sinus drainage for the past 5 days. Related Data Home Medications Medication Instructions Recorded Confirmed hydrochlorothiazide 12.5 mg tablet See Rx Instructions .Route 03/05/23 05/07/23 .COMPLEX . nebivolol 5 mg tablet See Rx Instructions .Route 03/05/23 05/07/23 .COMPLEX . pantoprazole 40 mg tablet,delayed See Rx Instructions .Route 03/05/23 05/07/23 release .COMPLEX . semaglutide (weight loss) 2.4 2.4 mg SQ WEEKLY Weight loss 03/05/23 05/07/23 mg/0.75 mL subcutaneous pen injector (Wegovy) levothyroxine 75 mcg tablet 75 mcg PO DAILY 05/07/23 05/07/23 Previous Rx's Medication Instructions Recorded clonazepam 0.5 mg tablet 0.5 mg PO BID Anxiety #60 tabs 04/26/22 fluticasone propionate 50 1 - 2 spray intranasal DAILY #16 03/05/23 mcg/actuation nasal grams spray,suspension (Flonase Allergy Relief) azithromycin 250 mg tablet 250 mg PO UD DOSE PK #6 tabs 11/25/23 (Zithromax) methylprednisolone 4 mg tablets in 4 mg PO DIRECTED 6 days #21 tabs 11/25/23 a dose pack oseltamivir 75 mg capsule (Tamiflu) 75 mg PO BID #10 caps 11/25/23 promethazine-DM 6.25 mg-15 mg/5 mL 5 ml PO Q6H PRN Cough #240 mL 11/25/23 oral syrup Allergies Allergy/AdvReac Type Severity Reaction Status Date / Time Penicillins [PENICILLINS] Allergy Unknown Verified 11/25/23 13:04 [facility] Disclaimer: The information contained in this section may have been updated after the patient was seen, as this information can be updated by other users. Medical History (Updated 11/25/23 @ 13:11 by Anand Hay APRN) Anxiety Hypothyroidism (acquired) Pleurodynia Sphincter of Oddi dysfunction Thoracic aortic aneurysm Surgical History H/O knee surgery History of cholecystectomy History of repair of ACL History of tonsillectomy and adenoidectomy Status post surgical removal of malignant neoplasm of skin Social History Smoking Status: Current every day smoker tobacco type: cigarettes packs per day: 1 alcohol intake: never substance use type: denies use current occupational status: employed Travel in the last 8 weeks: None household members: spouse and children housing: house current occupational exposures/hazards: No caffeine: Yes ROS Obtained: Yes All systems reviewed & no additional complaints except as documented Constitutional Constitutional: Reports chills and Reports fever(s) Eyes Eyes: Denies eye discharge ENT Ears, Nose, Mouth, and Throat: Reports as per HPI Cardiovascular Cardiovascular: Denies chest pain Respiratory Respiratory: Denies chest congestion and Reports cough Gastrointestinal Gastrointestingal: Reports nausea; Denies abdominal pain, constipation, cramping, diarrhea or vomiting Musculoskeletal Musculoskeletal: Denies arthralgias Integumentary/Breasts Skin/Breast: Denies rash Neurologic Neurologic: Denies paresthesias Physical Exam General General appearance: alert and in no apparent distress Eye Eye exam: Present normal appearance, PERRL and EOMI ENT ENT exam: Present mucous membranes moist and normal external ear exam Expanded ENT Exam External ear exam: Present normal external inspection TM/Canal exam: Bilateral TM: erythema and bulging Nose exam: Absent sinus tenderness Nasal speculum exam: Bilateral: normal Mouth exam: Present normal external inspection; Absent drooling Teeth exam: Present normal inspection Throat exam: Present tonsillar erythema and tonsillomegaly Neck Neck exam: Present normal inspection, full ROM and trachea midline; Absent tenderness, lymphadenopathy or thyromegaly Chest Chest inspection: Present normal inspection and symmetric chest wall rise; Absent tenderness or rash Respiratory Respiratory exam: Present normal lung sounds bilaterally; Absent respiratory distress, wheezes, stridor or accessory muscle use Cardiovascular Cardiovascular exam: Present regular rate, normal rhythm and normal heart sounds Abdominal Exam Abdominal exam: Present soft; Absent distention, tenderness, guarding, rebound or rigidity Extremities Exam Extremities exam: Present normal inspection, full ROM and normal capillary refill; Absent tenderness or calf tenderness Back Exam Back exam: Present normal inspection and full ROM; Absent tenderness Neurological Exam Neurological exam: Present alert and oriented X3 Psychiatric Psychiatric exam: Present normal affect and normal mood Skin Skin exam: Present warm, dry, intact and normal color Lymphatic Lymphatic Findings: no adenopathy Medical Decision Making Medical Records Medical records reviewed: No I reviewed the patient's medical records. [place] Inquiry Pt receiving controlled substance: No Lab Data Lab results reviewed: Yes I reviewed the patient's lab results.
[2023-11-25 13:24] VITALS: BP 132/78; PULSE 97; RESP 18; TEMP 37.3; O2SAT 99
== END 2023-11-25 13:24 | disposition home or self-care (01) ==
PROVIDERS: Emergency Provider Nurse Practitioner Family; PCP Nurse Practitioner Family
DX: J10.1 Influenza due to other identified influenza virus with other respiratory manifestations (principal); J01.90 Acute sinusitis, unspecified; R50.9 Fever, unspecified; R05.9 Cough, unspecified; R09.81 Nasal congestion; R53.81 Other malaise; F17.210 Nicotine dependence, cigarettes, uncomplicated
CPT/HCPCS: 87635; 99212; 99214; G0463

== ENCOUNTER 2024-09-26 10:29 | Outpatient (CLI) | payer BC, SELFPAY ==
--- NOTE | 2024-09-26 10:34 | XR_ITS ---
PROCEDURE INFORMATION: Exam: XR Chest Exam date and time: 09/26/2024 10:42 AM Age: 39 years old Clinical indication: Cough; Additional info: Acute bronchitis TECHNIQUE: Imaging protocol: Radiologic exam of the chest. Views: 2 views. COMPARISON: CT ANGIO CHEST 01/23/2021 3:58 PM FINDINGS: Lungs: Unremarkable. No consolidation. Pleural spaces: Unremarkable. No pleural effusion. No pneumothorax. Heart/Mediastinum: Unremarkable. No cardiomegaly. Bones/joints: Unremarkable. IMPRESSION: No acute findings.
== END 2024-09-26 23:59 | disposition home or self-care (01) ==
LOC: RAD 10:30
PROVIDERS: PCP Nurse Practitioner Family; Visit Provider Nurse Practitioner Family
DX: J20.9 Acute bronchitis, unspecified (principal)
CPT/HCPCS: 71046

== ENCOUNTER 2024-10-10 16:45 | Emergency (ER) | payer BC, SELFPAY ==
[2024-10-10 16:45] VITALS: BP 154/82; PULSE 70; RESP 20; TEMP 36.6; O2SAT 97; BMI 37.3
--- NOTE | 2024-10-10 16:48 | ECG_ITS ---
APPROVED REPORT Exam: Resting ECG HR:65 bpm ECG Measurements Heart Rate 65 AXES UT 151 P 41 QRSd 93 QRS 20 QT 389 T 17 QTc 401 Conclusion SINUS RHYTHM NORMAL ECG Electronically signed by : JEN GRAVES, 10/11/2024 17:26:59
--- NOTE | 2024-10-10 16:54 | ED_ITS ---
<Statement entered by Kristina Gamble MD - 10/10/24 23:23> I was consulted by the DALLIN, and we discussed the complexity of the problems being addressed. I approved the treatment and management plan for this patient's care in the emergency department, thus performing a substantive portion of the medical decision making. Kristina Gamble MD, DONNELL, FACEP Discharge Plan Prescriptions Prescriptions: No Action clonazepam 0.5 mg tablet 0.5 mg PO BID Qty: 60 2RF levothyroxine 75 mcg tablet 75 mcg PO DAILY pantoprazole 40 mg tablet,delayed release (DR/EC) See Rx Instructions .ROUTE .COMPLEX Rx Instructions: TAKE ONE TABLET BY MOUTH ONCE A DAY hydrochlorothiazide 12.5 mg tablet See Rx Instructions .ROUTE .COMPLEX Rx Instructions: TAKE 1/2 TABLET BY MOUTH ONCE A DAY nebivolol 5 mg tablet See Rx Instructions .ROUTE .COMPLEX Rx Instructions: TAKE ONE TABLET BY MOUTH ONCE A DAY Wegovy 2.4 mg/0.75 mL pen injector 2.4 mg SQ WEEKLY fluticasone propionate [Flonase Allergy Relief] 50 mcg/actuation spray,suspension 1 - 2 spray intranasal DAILY Qty: 16 0RF Rx Instructions: administer into each nostril promethazine-DM 6.25-15 mg/5 mL Syrup 5 ml PO Q6H PRN (Reason: Cough) Qty: 240 0RF azithromycin [Zithromax] 250 mg tablet 250 mg PO UD DOSE PK Qty: 6 0RF Rx Instructions: Take two (2) tablets today, then one (1) tablet days #2 thru #5 methylprednisolone 4 mg Tablets,Dose Pack 4 mg PO DIRECTED 6 Days Qty: 21 0RF Rx Instructions: Take 1 pack as directed for 6 days oseltamivir [Tamiflu] 75 mg capsule 75 mg PO BID Qty: 10 0RF Referrals Follow up/Referrals: Bob Rm II, MD [Staff Physician] - See instructions Phoebe Nguyen APRN [Primary Care Provider] - See instructions Activity Restrictions/Add. Instructions Additional Instructions/Restrictions: As we discussed take your Protonix at bedtime along with a dose of Pepcid. Call on Sunday to make your appointment with Dr. Rm. Follow-up with your PCP for any worsening signs or symptoms as needed. Clinical Impressions Clinical Impression: Chronic gastroesophageal reflux disease Chest pain Qualifiers: Chest pain type: unspecified Qualified Code(s): R07.9 - Chest pain, unspecified Print Language Print Language: Namibian Discharge ED Provider: Kristina Gamble HPI General Chief Complaint: Chest Pain Stated Complaint: Chest Pain Time Seen by Provider: 10/10/24 16:54 History of Present Illness HPI narrative: Patient presents for evaluation of chest pain. Patient states that she has a long history of GERD and last night had an episode that woke her up from sleep. She normally takes Protonix in the morning and Pepcid as needed for flares. Her discomfort has persisted throughout the day has not worsened particularly but has a burning sensation substernally. Patient does have a history of an ascending aortic aneurysm that is followed by Dr. Zhou at the [facility]. She was told to come to the emergency department for evaluation considering the location of her discomfort. She denies of fever chills hemoptysis hematochezia melena dizziness headache palpitations. Related Data Home Medications ?Medication ?Instructions ?Recorded ?Confirmed hydrochlorothiazide 12.5 mg tablet See Rx Instructions .Route 03/05/23 05/07/23 .COMPLEX . nebivolol 5 mg tablet See Rx Instructions .Route 03/05/23 05/07/23 .COMPLEX . pantoprazole 40 mg tablet,delayed See Rx Instructions .Route 03/05/23 05/07/23 release .COMPLEX . semaglutide (weight loss) 2.4 2.4 mg SQ WEEKLY Weight loss 03/05/23 05/07/23 mg/0.75 mL subcutaneous pen injector (Wegovy) levothyroxine 75 mcg tablet 75 mcg PO DAILY 05/07/23 05/07/23 Previous Rx's ?Medication ?Instructions ?Recorded clonazepam 0.5 mg tablet 0.5 mg PO BID Anxiety #60 tabs 04/26/22 fluticasone propionate 50 1 - 2 spray intranasal DAILY #16 03/05/23 mcg/actuation nasal grams spray,suspension (Flonase Allergy Relief) azithromycin 250 mg tablet 250 mg PO UD DOSE PK #6 tabs 11/25/23 (Zithromax) methylprednisolone 4 mg tablets in 4 mg PO DIRECTED 6 days #21 tabs 11/25/23 a dose pack oseltamivir 75 mg capsule (Tamiflu) 75 mg PO BID #10 caps 11/25/23 promethazine-DM 6.25 mg-15 mg/5 mL 5 ml PO Q6H PRN Cough #240 mL 11/25/23 oral syrup Allergies Allergy/AdvReac Type Severity Reaction Status Date / Time Penicillins (PENICILLINS) Allergy Unknown Verified 11/25/23 13:04 [facility] Disclaimer: The information contained in this section may have been updated after the patient was seen, as this information can be updated by other users. Medical History (Updated 10/10/24 @ 18:45 by ATTILA John) Sphincter of Oddi dysfunction Anxiety Hypothyroidism (acquired) Thoracic aortic aneurysm Pleurodynia Surgical History Status post surgical removal of malignant neoplasm of skin History of tonsillectomy and adenoidectomy History of cholecystectomy History of repair of ACL H/O knee surgery Social History Smoking Status: Never smoker alcohol intake: never substance use type: denies use current occupational status: employed household members: spouse and children housing: house current occupational exposures/hazards: No caffeine: Yes Other Medical History Have you received the Flu Vaccine for this season: No Have you received the Pneumonia Vaccine: No ROS Obtained: Yes Systems reviewed as appropriate & no additional complaints except as documented Physical Exam General General appearance: alert and in no apparent distress Respiratory Respiratory exam: Present normal lung sounds bilaterally Cardiovascular Cardiovascular exam: Present regular rate Neurological Exam Neurological exam: Present alert and oriented X3 HEART Score HEART Score HEART Score assessment performed?: Yes History (anamnesis): Slightly suspicious ECG: Non-specific disturbance Age: <45 years Risk factors: 3 or more risk factors Troponin: </= normal limit HEART Score: 3 Critical Care Critical Care Time Critical Care Time: No Medical Decision Making Medical Records Medical records reviewed: Yes I reviewed the patient's medical records. [place] Inquiry Pt receiving controlled substance: No Vital Signs Vital Signs: 10/10/24 16:45 10/10/24 17:00 10/10/24 18:48 Temperature 97.8 F 97.8 F Temperature Source Oral Oral Pulse Rate 67 70 Pulse Rate [Right] 70 Respiratory Rate 20 20 Blood Pressure 148/93 H 120/77 Blood Pressure [Right Arm] 154/82 H Blood Pressure Mean 105 Blood Pressure Mean [Right Arm] 106 Blood Pressure Source [Right Arm] Automatic Cuff 02 Sat by Pulse Oximetry 97 99 Oxygen Delivery Method Room Air Room Air Lab Data Lab results reviewed: Yes I reviewed the patient's lab results. Labs: Lab Results 10/10/24 16:55: WBC 7.9, RBC 4.37, Hgb 13.0, Hct 38.4, MCV 88.0, MCH 29.7, MCHC 33.8, RDW 15.1, Plt Count 226, MPV 8.0, Neut % (Auto) 66.4, Lymph % (Auto) 24.3, Harmon % (Auto) 4.5, Eos % (Auto) 3.9, Baso % (Auto) 1.0, Neut # (Auto) 5.2, Lymph # (Auto) 1.9, Harmon # (Auto) 0.4, Eos # (Auto) 0.3, Baso # (Auto) 0.1, Sodium 139, Potassium 3.9, Chloride 103, Carbon Dioxide 29, Anion Gap 10.9, BUN 14, C reatinine 1.10 H, Estimated Creat Clear 135, Estimated GFR 55 L, Est GFR ( Amer) 67, Glucose 97, Calcium 9.4, Magnesium 2.1, Total Bilirubin 0.5, AST 55 H, ALT 55, Alkaline Phosphatase 67, Troponin I < 0.01, NT-Pro-B Natriuret Pep 152 H, Total Protein 8.0, Albumin 4.6, Globulin 3.4 H, Albumin/Globulin Ratio 1.4, Serum HCG, Qual Negative 10/10/24 16:55 10/10/24 16:55 Response Orders (Tests/Meds): ED MEDICATIONS Discontinued Medications Generic Name Dose Route Start Last Admin Trade Name Freq PRN Reason Stop Dose Admin Acetaminophen 1,000 mg 10/10/24 16:57 10/10/24 17:06 Acetaminophen 1,000mg/100ml Vial IV 10/10/24 16:58 1,000 mg ONCE ONE Administration Belladonna Alkaloids 60 ml 10/10/24 16:57 10/10/24 17:07 Belladonna Alkaloids 60 Ml Ml PO 10/10/24 16:58 60 ml ONCE ONE Administration Iopamidol 100 ml 10/10/24 17:34 10/10/24 17:35 Iopamidol-370 (76%);100ml Bottle IV 10/10/24 17:35 100 ml ONCE ONE Administration Sodium Chloride 10 ml 10/10/24 17:34 10/10/24 17:35 Sodium Chloride 0.9% 10ml Syr (Rad Only) IV 10/10/24 17:35 10 ml ONCE ONE Administration Sodium Chloride 50 ml 10/10/24 17:34 10/10/24 17:35 0.9 % Sodium Chloride 50 Ml Vial IV 10/10/24 17:35 50 ml ONCE ONE Administration ORDERS Category Date Time Status CT angio chest - dissection Stat Cat Scan 10/10/24 16:57 Completed BNP [NT Pro Brain Natriuretic Pep.] Stat Lab 10/10/24 16:55 Completed CBC w/Auto Diff [Complete Blood Count Auto Diff] Stat Lab 10/10/24 16:55 Completed CMP [Comprehensive Metabolic Panel] Stat Lab 10/10/24 16:55 Completed HCG Qualitative, Serum Stat Lab 10/10/24 16:55 Completed HIV (1&2) Antibody Rapid Stat Lab 10/10/24 16:55 Received Hep C Ab with Reflex to RNA Stat Lab 10/10/24 16:55 Received Magnesium Stat Lab 10/10/24 16:55 Completed Trop I [Troponin I] Stat Lab 10/10/24 16:55 Completed MDM Narrative Medical Decision Narrative: In summary patient is a 39-year-old female who presents to the emergency department for evaluation of chest pain. Patient has a known ascending aortic aneurysm of approximately 4.3 [address] followed [address] Lima at [facility]. Patient is hemodynamically stable upon arrival, afebrile. Zickel exam is unremarkable and nonfocal including normal breath sounds no reproducible chest pain on examination no abdominal tenderness with no rebound or guarding or rigidity and normal bowel sounds. Differential diagnosis includes esophagitis versus gastritis versus ACS versus dissection etc. Initial workup will be conducted with hematologic labs CT scan dissection protocol. Initial interventions include Tylenol GI cocktail. Initial workup reviewed by me shows that her hematologic labs are nonactionable troponins undetectable and my informal interpretation of her dissection protocol shows a stable ascending aortic aneurysm and no other acute intrathoracic processes. Upon repeat evaluation patient had complete resolution of her symptoms after administration of GI cocktail.. Given this patient is appropriate for discharge with referral to gastroenterology for upper endoscopy for worsening GERD. Patient is referred back to cardiothoracic surgery at [facility] at her regular scheduled visit or sooner if she has any worsening signs or symptoms.
--- NOTE | 2024-10-10 16:57 | CT_ITS ---
PROCEDURE INFORMATION: Exam: CTA Chest With Contrast Exam date and time: 10/10/2024 5:25 PM Age: 39 years old Clinical indication: Pain; Chest pressure; Additional info: Cp w/known ascending aortic aneurysm TECHNIQUE: Imaging protocol: Computed tomographic angiography of the chest with contrast. Exam focused on the arteries. 3D rendering (Not supervised by radiologist): MIP and/or 3D reconstructed images were created by the technologist. Radiation optimization: All CT scans at this facility use at least one of these dose optimization techniques: automated exposure control; mA and/or kV adjustment per patient size (includes targeted exams where dose is matched to clinical indication); or iterative reconstruction. Contrast material: IOSVUE 370; Contrast volume: 100 ml; Contrast route: INTRAVENOUS (IV); COMPARISON: 1. CT ANGIO CHEST 01/23/2021 3:58 PM 2. CR XR CHEST 2V 09/26/2024 10:42 AM 3. CR XR CHEST PORTABLE 01/23/2021 1:24 PM FINDINGS: Pulmonary arteries: Normal. No pulmonary emboli. Aorta: Stable dilation of the ascending thoracic aorta. Lungs: There are scattered calcified granulomas in the lungs which most likely reflect prior granulomatous disease. Pleural spaces: Unremarkable. No pneumothorax. No pleural effusion. Heart: Unremarkable. No cardiomegaly. No pericardial effusion. Lymph nodes: There are calcified mediastinal lymph nodes likely reflecting prior granulomatous disease. Liver: There is possible hepatic steatosis, evaluation is limited secondary to contrast enhancement. Spleen: There are multiple calcifications in the spleen most likely reflects small granulomas. Bones/joints: Unremarkable. No acute fracture. Soft tissues: Unremarkable. IMPRESSION: 1. No evidence for dissection. Stable dilation of the ascending thoracic aorta which measures up to 4.2 cm. 2. No dense parenchymal consolidation, pleural effusion, or pneumothorax.
[2024-10-10 17:00] VITALS: BP 148/93; PULSE 67; O2SAT 99
[2024-10-10 17:06] LABS: Basophils # 0.1 K/mm3 (0-0.2); Eosinophils # 0.3 K/mm3 (0.0-0.4); Eosinophils % 3.9 % (0.1-12.0); Hematocrit 38.4 % (37.0-47.0); Lymphocytes # 1.9 K/mm3 (0.7-4.5); Lymphocytes % 24.3 % (10-50); Mean Corpuscular HGB Conc 33.8 g/dL (31.8-35.4); Mean Corpuscular Hemoglobin 29.7 pg (27.0-31.2); Monocytes # 0.4 K/mm3 (0.1-1.0); Monocytes % 4.5 % (1.7-9.3); Neutrophils # 5.2 K/mm3 (1.8-7.8); Neutrophils % 66.4 % (37.0-80.0); Platelet Count 226 K/mm3 (142-424); Red Blood Count 4.37 M/mm3 (4.20-5.40); Red Cell Distribution Width 15.1 % (11.5-17.5); White Blood Count 7.9 K/mm3 (4.8-10.8)
[2024-10-10] MEDS: ACETAMINOPHEN 1,000MG/100ML VIAL 1000 MG IV (17:06)
[2024-10-10] MEDS: BELLADONNA ALKALOIDS 60 ML ML PO (17:07)
[2024-10-10 17:16] LABS: Alanine Aminotransferase 55 U/L (12-78); Albumin Level 4.6 g/dl (3.5-5.0); Albumin/Globulin Ratio 1.4 (1.1-1.8); Alkaline Phosphatase 67 U/L (38-126); Anion Gap 10.9 mEq/L (5-15); Aspartate Amino Transferase 55 U/L (14-36); Bilirubin,Total 0.5 mg/dl (0.2-1.3); Blood Urea Nitrogen 14 mg/dl (7-17); Calcium 9.4 mg/dl (8.4-10.2); Carbon Dioxide 29 mmol/L (22.0-30.0); Chloride 103 mmol/L (98-107); Creatinine Clearance Estimated 135 mL/min (50-200); Estimated Glomerular Filt Rate 55 ml/min (>60); GFR (African American) 67 ML/MIN (>60); Globulin 3.4 g/dL (1.3-3.2); Glucose 97 mg/dl (74-100); Magnesium 2.1 mg/dl (1.6-2.3); Potassium 3.9 mmoL/L (3.5-5.1); Sodium 139 mmol/L (136-145)
[2024-10-10 17:21] LABS: HCG Qualitative, Serum Negative (Negative)
[2024-10-10 17:27] LABS: NT Pro Brain Natriuretic Pep. 152 pg/mL (0-125)
[2024-10-10 17:30] LABS: Troponin I < 0.01 ng/ml (0.00-0.034)
[2024-10-10] MEDS: 0.9 % SODIUM CHLORIDE 50 ML VIAL IV (17:35)
[2024-10-10] MEDS: IOPAMIDOL-370 (76%);100ML BOTTLE 100 ML IV (17:35)
[2024-10-10] MEDS: SODIUM CHLORIDE 0.9% 10ML SYR (RAD ONLY) 10 ML IV (17:35)
[2024-10-10 18:48] VITALS: BP 120/77; PULSE 70; RESP 20; TEMP 36.6; O2SAT 95
[2024-10-10 20:01] LABS: HIV (1&2) Antibody Rapid NONREACTIVE (NONREACTIVE)
[2024-10-12 09:24] LABS: HCV Ab Non Reactive (Non Reactive)
== END 2024-10-10 18:50 | disposition home or self-care (01) ==
PROVIDERS: Physician Assistant; Emergency Provider Student in an Organized Health Care Education/Training Program; PCP Nurse Practitioner Family
DX: R07.9 Chest pain, unspecified (principal); K21.9 Gastro-esophageal reflux disease without esophagitis
CPT/HCPCS: 71275; 80053; 83735; 83880; 84484; 84703; 85025; 86803; 87389; 93005; 96374; 99285; J0131; Q9967

== ENCOUNTER 2024-10-28 08:55 | Outpatient (CLI) | payer BC, SELFPAY | END 2024-10-28 23:59 | disposition home or self-care (01) | LOC: LAB 08:56 | PROVIDERS: PCP Nurse Practitioner Family; Visit Provider Internal Medicine Gastroenterology | DX: Z02.9 Encounter for administrative examinations, unspecified (principal) ==

== ENCOUNTER 2025-01-30 06:59 | Outpatient (CLI) | payer BC, SELFPAY ==
--- NOTE | 2025-01-30 | CT_ITS ---
FINAL REPORT TECHNIQUE: Thin section axial CT with coronal and sagittal reconstruction without IV contrast This study was performed with techniques to keep radiation doses as low as reasonably achievable, (ALARA). Individualized dose reduction techniques using automated exposure control or adjustment of mA and/or kV according to the patient's size were employed. CLINICAL HISTORY: CHRONIC RHINITIS COMPARISON: None FINDINGS: CT SINUSES: There is mild mucosal thickening of the inferior left maxillary sinus, measuring 3 mm in thickness. There is a mucosal retention cyst in the inferior right maxillary sinus measuring 13 mm in size. There is mild scattered mucosal thickening in the ethmoid air cells. The sphenoid and frontal sinuses are clear. There is significant mucus congestion of the nasal turbinates and nasal air passages. The ostiomeatal complexes are partially obstructed secondary to mucosal thickening. There is 2 mm of nasal septal deviation. IMPRESSION: Mild inflammatory changes maxillary and ethmoid sinuses without acute sinusitis. Significant mucosal congestion of the nasal turbinates causing narrowing of the nasal air passages. Reviewed, Interpreted and Dictated by Byron Rogers MD Transcribed by Cristiane Rob Authenticated and . [facility]
== END 2025-01-30 23:59 | disposition home or self-care (01) ==
LOC: RAD 07:00
PROVIDERS: PCP Nurse Practitioner Family; Visit Provider Otolaryngology
DX: J31.0 Chronic rhinitis (principal)
CPT/HCPCS: 70486

== ENCOUNTER 2025-03-06 07:56 | Outpatient (CLI) | payer BC, SELFPAY ==
--- NOTE | 2025-03-06 07:59 | US_ITS ---
FINAL REPORT CLINICAL HISTORY: ABD LEVELS OF OTHER SERUM ENZYMES COMPARISON: None FINDINGS: Sonographic images of the right upper quadrant were obtained. The pancreas is obscured. There is fatty infiltration of the liver. The gallbladder has been surgically resected. There is no evidence of biliary ductal dilatation.The common duct was not visualized secondary to patient body habitus. Limited images of the right kidney are unremarkable. IMPRESSION: Limited exam as described, secondary to patient body habitus. Prior cholecystectomy. Fatty infiltration of the liver. Reviewed, Interpreted and Dictated by Elliot Luna MD Transcribed by Cristiane Rob Authenticated and [facility]
--- OUTSIDE RECORDS SUMMARY | 2025-03-06 07:59 | XMS_ITS | Continuity of Care Document ---
Author Organization [place] - [place] [facility] & [place], [facility] - [address] Address [address] [facility], [place] [address] Care Team Providers Care Compliance Engineer Products Name Role Phone BROOKE NGUYEN Primary Care Provider [phone] Assessment No assessment recorded. Plan of Treatment Reminders Order Date Submit Date Provider Last Modified By Organization Details Last Modified Time Details Appointments None record ed. Lab None record ed. Referral None record ed. Procedures None record ed. Surgeries None record ed. Imaging None record ed. Medication Orders None record ed. Patient TargetsNo targets recorded. Patient Instructions Encounter Date Encounter Id Patient Instructions Last Modified By Organization Details Last Modified Time 02/11/2025 [id number] Dory did not have significant evidence of chronic sinusitis on her CT scan. There was significant mucosal edema that I suspect is related to allergic rhinitis or other possible inflammatory process. She does report that she felt much better when she was getting her allergy injections every 2-3 weeks and I have asked her to discuss that with her records section supervisor whom she is seeing this afternoon. Could consider turbinate reduction if allergies are maximally medically managed. [email or web address] Not available 02/11/2025 14:10:49 Reason for Referral None Reported. Results Created Date Observation Date Name Description Value Unit Range Abnormal Flag Note LastModifiedBy Organization Detail LastModifiedTime 01/31/2001/30/2025 CT, sinus es, w/o contr ast No observ ation record ed. [facility] [address], [place], [address], 02/06/2025 10:44:01 02/12/2001/30/2025 CT, sinus es, w/o contr ast No observ ation record ed. [email or web address] Not Available 2024 13:23:42 Result Notes None recorded. Problems Name Problem SNOMED Code Status Onset Date Resolution Date Notes Provider Name and Address Organization Details Recorded Time Thyroiditis 82961930 Active 2022 Karel rahman, [place] - [facility] - [place] & [place] 3 09:41:15 Environmental allergy 360071557 Active 2022 Karel rahman, [place] - [facility] - [facility] & [place] 3 09:41:23 Anxiety 28114899 Active 2022 Karel rahman, [place] - [facility] - [facility] & [place] 3 09:41:28 Conductive hearing loss, bilateral 363502540 Active 2023 BIRDIE LOPEZ, AUD [address] [facility], [place], [address] , [place] - [facility] - [place] & [place] 4 15:55:05 Problem Notes None recorded. Procedures Surgical History Date Name Laterality Status Provider Name and Address Organization Details Recorded Time 11/12/19 17 Cancer Surgery completed Dignadaisy Brown[place] - [facility] - [place] & [place] 12/31/2024 10:12:49 11/12/19 09 Other completed Digna Niurka [place] - [facility] - [place] & [place] 12/31/2024 10:12:49 11/12/19 05 Other completed Digna Niurka [place] - [facility] - [place] & [place] 12/31/2024 10:12:49 11/12/18 99 Other completed Digna Niurka [place] [facility] - [place] & [place] 12/31/2024 10:12:49 11/12/18 93 Tonsillectomy/Adeno idectomy completed Dignadaisy Brownence [place] - [facility] - [place] & [place] 12/31/2024 10:12:48 11/12/18 93 Appendectomy completed Dignadaisy [place] - [facility] - [place] & [place] 12/31/2024 10:12:49 repair of joint of right knee completed Adarshkelvin Cl[place] - [facility] - [place] & [place] 06/06/2023 09:42:24 tonsillectomy completed Karel GILL [facility] & [place] 06/06/2023 09:42:33 cholecystectomy completed Karel GILL [facility] & [place] 06/06/2023 09:42:44 incision of sphincter of Oddi completed Karel GILL [facility] & [place] 06/06/2023 09:43:07 screening for malignant neoplasm of skin completed Karel GILL [facility] & [place] 06/06/2023 09:43:54 repair of aneurysm of aorta completed Karel GILL [facility] & [place] 06/06/2023 09:44:16 Imaging Results None recorded. Procedure Notes None recorded. Medical Equipment None Reported. Allergies Allergen ID Allergen Name Allergen Category Reaction Reaction Severity Criticality Documentation Date Start Date Code Code System Note Provider Name and Address Organization Details Recorded Time 62252 Product containin g penicilli n (product) medicatio n hives Not available high 06/06/2023 02904 8001 SNOMED Digna rahman [place] [facility] [place] 10:13:01 Medications Name Sig Start Date Stop Date Status Note LastModified by Organization Details LastModified Time promethazin e-DM 6.25 mg-15 mg/5 mL oral syrup TAKE 5 ML BY MOUTH EVERY 6 HOURS NEEDED FOR COUGH 02/24 completed Not Available Not Available Not Available cetirizine 10 mg tablet 12/31 completed Not Available Not Available Not Available azithromyci n 250 mg tablet TAKE 2 TABLETS BY MOUTH ON DAY 1, AND THEN TAKE 1 TABLET BY MOUTH ONCE A DAY ON DAY 2 THROUGH DAY 5 12/31 completed Not Available Not Available Not Available tretinoin 0.025 % topical cream active Not Available Not Available Not Available phenazopyri dine 200 mg tablet 06/06 completed Not Available Not Available Not Available prednisone 20 mg tablet TAKE 1 TABLET BY MOUTH TWICE DAILY FOR 5 DAYS 12/31 completed Not Available Not Available Not Available clonazepam 0.5 mg tablet TAKE 1 TABLET BY MOUTH TWICE DAILY NEEDED FOR SEVEN DAYS active Not Available Not Available No t Available sulfamethox azole 800 mg-trimetho prim 160 mg tablet 06/06 completed Not Available Not Available Not Available prednisone 10 mg tablets in a dose pack Take 1 dose pk by oral route. 12/31 completed Not Available Not Available Not Available amoxicillin 250 mg/5 mL oral suspension 06/06 completed Not Available Not Available Not Available levothyroxi ne 50 mcg tablet 02/24 completed Not Available Not Available Not Available cephalexin 500 mg capsule 06/06 completed Not Available Not Available Not Available pantoprazol e 40 mg tablet,ananth yed release 12/31 completed Not Available Not Available Not Available oseltamivir 75 mg capsule TAKE 1 CAPSULE BY MOUTH TWICE DAILY 02/24 completed Not Available Not Available Not Available Synthroid 88 mcg tablet active Not Available Not Available Not Available bupropion HCl 75 mg tablet active Not Available Not Available Not Available Synthroid 75 mcg tablet 12/31 completed Not Available Not Available Not Available montelukast 10 mg tablet active Not Available Not Available Not Available azelastine 137 mcg (0.1 %) nasal spray active Not Available Not Available Not Available Nasonex 50 mcg/actuati on [place] 2 sprays every day by intranasa l route. 2023 active Not Available Not Available Not Avai lable methylpredn isolone 4 mg tablets in a dose pack Take 1 dose pk by oral route. active Not Available Not Available No t Available cefdinir 300 mg capsule TAKE 1 CAPSULE BY MOUTH TWICE DAILY FOR 10 DAYS 12/31 completed Not Available Not Available Not Available fluticasone propionate 50 mcg/actuati on nasal spray,suspe nsion USE 1 SPRAY(S) IN EACH NOSTRIL TWICE DAILY active Not Available Not Available No t Available escitalopra m 10 mg tablet 12/31 completed Not Available Not Available Not Available ciprofloxac in 0.3 %-dexametha sone 0.1 % ear drops,suspe nsion 02/24 completed Not Available Not Available Not Available Lexapro 12/31 completed Not Available Not Available Not Available hydrochloro thiazide 12.5 mg tablet active Not Available Not Available Not Available levocetiriz ine 5 mg tablet active Not Available Not Available Not Available nebivolol 5 mg tablet active Not Available Not Available No t Available Bystolic active Not Available Not Avai lable Not Available Wegovy 2.4 mg/0.75 mL subcutaneou s pen injector 12/31 completed Not Available Not Available Not Available Voquezna 10 mg tablet active Not Available Not Available No t Available Vitals Date Recorded Body height Body mass index (BMI) Body weight Body temperature Provider Name and Address Organization Details Last Updated DateTime 02/11/2025 182.88 cm 38.1 kg/m2 941826.46 g 97.5 [degF] Digna GILL - [facility] [place] 02/11/2025 11:24:05 Social History Question Answer Notes LastModified by Organizat ion Details LastModified Time Tobacco Smoking Status Former Smoker Digna Bah null, [place] [facility] [place] 12/31/2024 10:12:42 Do You Have An Advance Directive? No Information not available 12/31/2024 What Is Your Level Of Alcohol Consumption? None [email or web address] Information not available 06/06/2023 Are You Blind Or Do You Have Difficulty Seeing? No Information not available 12/31/2024 What Was The Date Of Your Most Recent Tobacco Screening? 12/28/2024 Information not available 12/31/2024 Are You Passively Exposed To Smoke? Yes Information no t available 12/31/2024 Do You Or Have You Ever Used Smokeless Tobacco? Never Used Smokeless Tobacco Information not available 12/31/2024 How Much Tobacco Do You Smoke? No Information not available 12/31/2024 Do You Feel Stressed (tense, Restless, Nervous, Or Anxious, Or Unable To Sleep At Night)? [id number] Information not available 12/31/2024 Do You Use Any Illicit Or Recreational Drugs? No Information not available 12/31/2024 How Many Years Have You Smoked Tobacco? 10 Information not available 12/31/2024 Sex: Female Functional Status Question Answer Note LastModified by Organizat ion Details LastModified Time What is your exercise level? Occasional Information not available 12/31/2024 Mental Status None recorded. Family History Relationship Description Onset Age of this Age Resolved Age Notes LastModified by Organization Details LastModified Time Father Family history unknown [email or web address] Not available 2022 09:41:49 Mother Family history unknown [email or web address] Not available 2022 09:41:49 Brother Family history unknown [email or web address] Not available 2022 09:41:49 Medical History Condition Response Thyroid Problems Y GI Problems Y Ear or Hearing Problems Y Gynecological History Statement/Question Response Abnormal Pap N Flow Moderate Date of LMP 05/01/1995 Sexually Active? Y Menses Monthly Y Duration of Flow (days) 7 Current Control Method None Age at Menarche 10 Obstetrics History GPAL:G 0 P 0 0 0 0 Past Encounters Encounter ID Performer Location Encounter Start Date Encounter Closed Date Diagnosis/Indication Diagnosis SNOMED-CT Code Diagnosis ICD10 Code Diagnosis Note [id number] Lucrecia Andersen MD [facility] [address] [facility], [facility] [address] [place] [phone] 02/11/2025 11:21:55 02/11/2025 11:51:08 Nasal congestion 62874268 R09.81 Chronic rhinitis 9086012 6 J31.0 Allergic rhinitis 138165 04 J30.9 Health Concerns Section Related Observation LastModified by Organization Detai ls LastModified Time None Recorded Concern Status LastModified by Organization Details LastModified Time None Recorded Payers Encounter Date Sequence Insurance Name Policy Number Policy Banegas Covered Member ID Banegas Member ID Guarantor Name 02/11/2025 1 [facility]: [facility] [place] [place] (PPO) [id number] [facility] [id number] [facility] Notes Date Note Type Note Provider Name and Address Organization Details Recorded Time 02/11/2025 text/html 02/25/24- Patient is here for bilateral ear problems, states both ears have been muffled, fluid in both ears. States her left ear has been clogged, crackling, pressure and ear canal feels swollen. She is currently on allergy shots in [place] and has been for about a year. She denies ever having otologic surgery and no history of sinus surgery. She also denies any sinus imaging. 12/31/24-Patient is here for follow up on bilateral ear complaints. Does report that after she finished Prednisone last February that her left ear improved. She reports that her right ear had been hurting and And she saw her PCP, Brooke Nguyen who put her on a round of antibiotics. She reports her symptoms did improve but she does not feel that she is back to her baseline. She is using a nasal steroid daily and has been on at least 3 weeks of antibiotics in the past 6 months with continued nasal congestion and frontal headache. 02/11/25-Patient is here for follow up on CT sinus. Patient is congested today having trouble breathing. She has a follow up appointment with Allergy appointment today and she is going to discuss with them today about changing her shots from monthly to every three weeks. She feels as if she had better control of her symptoms when she was taking injections every 2-3 weeks. Lucrecia Andersen MD [address] [facility], [place], [address], [facility] - [place] & [place] 02/11/2025 14:11:07 OBGyn Episode No OBEpisode recorded.
== END 2025-03-06 23:59 | disposition home or self-care (01) ==
PROVIDERS: PCP Nurse Practitioner Family; Visit Provider Nurse Practitioner Family
DX: K76.0 Fatty (change of) liver, not elsewhere classified (principal)
CPT/HCPCS: 76705

== ENCOUNTER → 2025-06-22 13:59 | Outpatient (CLI) | payer BC, SELFPAY ==
--- OUTSIDE RECORDS SUMMARY | 2025-04-29 10:30 | XMS_ITS | Encounter Summary ---
Author Organization Healthcare Address [address] [place] [address] Care Team Providers Care Pediatric Radiologist Name Role Phone Phoebe Nguyen ACCOUNT LIAISON Primary Care Provider [phone] Reason for Visit * Reason Comments Obesity Encounter Details Date Type Department Care Team (Late st Contact Info) Description 04/29/2025 10:30 AM EDT Office Visit [facility] General & Weight Loss Surgery [address] [place] [phone] Lubna Hardin, ACCOUNT LIAISON [address] [phone] Obesity, Class II, BMI 35-39.9 (Primary Dx); Primary hypertension; Gastroesophageal reflux disease, unspecified whether esophagitis present; Aneurysm of ascending aorta without rupture (CMS/HCC) Social History Tobacco Use Types Packs/Day Years Used Date Smoking Tobacco: Former Cigarettes 0.3 28.9 0 11/12/2000 - 08/12/2022 Passive Smoke Exposure: Past Smokeless Tobacco: Never Tobacco Cessation:Counseling Given: Yes Alcohol Use Standard Drinks/Week Comments Not Currently 0 (1 standard drink = 0.6 oz pur e alcohol) PHQ-2 Answer Date Recorded Patient Health Questionnaire-2 Score 0 04/29/2025 PHQ-9 Answer Date Recorded Patient Health Questionnaire-9 Score 0 04/29/2025 Comments Unknown Sex and Gender Information Value Date Recorded Sex Assigned at Not on file Legal Sex Female 8:07 PM EDT Gender Identity Not on file Sexual Orientation Not on file Occupation Industry Job Start Date Job End Date Not on file Not on file Not on file Not on file documented as of this encounter Last Filed Vital Signs Vital Sign Reading Time Taken Comments Blood Pressure 107/73 04/29/2025 11:00 AM EDT Pulse 67 04/29/2025 11:00 AM EDT Temperature - - Respiratory Rate 16 04/29/2025 11:00 AM EDT Oxygen Saturation 98% 04/29/2025 11:00 AM EDT Inhaled Oxygen Concentration - - Weight 117 kg (257 lb) 04/29/2025 11:00 AM EDT Height 180.3 cm (5' 11 ) 04/29/2025 11:00 AM EDT Body Mass Index 35.84 04/29/2025 11:00 AM EDT documented in this encounter Functional Status * Over the past 2 weeks, how often have you been bothered by any of the following problems? Question Answer Date of Assessment Author Little interest or pleasure in doing things Not at all 04/29/2025 11:01 AM EDT Varsha Ace Feeling down, depressed, or hopeless Not at all 04/29/2025 11:01 AM EDT Varsha Pacheco Patient Health Questionnaire-2 Score 0 04/29/2025 11:01 AM EDT Varsha Shields * Question Answer Date of Assessment Author Trouble falling or staying asleep, or sleeping too much Not at all 04/29/2025 11:01 AM EDT Varsha Yi Feeling tired or having little energy Not at all 04/29/2025 11:01 AM EDT Varsha Pacheco Poor appetite or overeating Not at all 04/29/2025 11 :01 AM EDT Varsha Pacheco Feeling bad about yourself - or that you are a failure or have let yourself or your family down Not at all 04/29/2025 11:01 AM EDT Varsha Pacheco Trouble concentrating on things, such as reading the newspaper or watching television Not at all 04/29/2025 11:01 AM EDT Varsha Pacheco Moving or speaking so slowly that other people could have noticed? Or the opposite - being so fidgety or restless that you have been moving around a lot more than usual. Not at all 04/29/2025 11:01 AM EDT Varsha Pacheco Thoughts that you would be better off or hurting yourself in some way Not at all 04/29/2025 11:01 AM EDT Varsha Pacheco Patient Health Questionnaire-9 Score 0 04/29/2025 11:01 AM EDT Varsha Shields * If you checked off any problems on this questionnaire so far, Question Answer Date of Assessment Author How difficult have these problems made it for you to do your work, take care of things at home, or get along with other people? Not difficult at all 04/29/2025 11:01 AM EDT Varsha Pacheco documented as of this encounter Miscellaneous Notes * Clinician Note - Katerin Sawant RN - 04/29/2025 10:30 AM EDT Dory Jimenez, 1985, presents today for participation of medically supervised weight loss surgery program including nutritional counseling. tanita Scale Results: Current Weight: 257 lbs. Fat %: 47.8% Fat Mass: 122.8 lbs. FFM: 134.2 lbs. TBW: 98.8 lbs. TBW %: 38.4% BMR: 1917 kcal BMI: Body mass index is 35.84 kg/m??. body composition results were discussed and reviewed to the patient Consult Weight: 264.4 lbs Previous Visit/Weight: 04/15/25 - 261.8 lbs. Weight Change Since Consult Visit: decrease of 7.4 lbs. Weight Change Since Previous Visit: decrease of 4.8 lbs. Dory Jimenez Is tracking consumption through [employer]. Tracking Source: [employer] Reviewed Average Days: 3 Protein: 116 grams Fat: 34 grams Carbohydrates: 33 grams Calories: 889 kcal Fluid Ounces: 64 fluid ounces Changes Made Since Previous Visit: Carbonation: Is not consuming carbonation Caffeine: Is not consuming caffeine. Sugary Drinks: Is not consuming sugary drinks Fluid Window: Is practicing the fluid window, currently 30-40 min before meals and 30 min after meals Portion Control: Is reducing portion sizes Exercise: Is dedicating specific time to exercise including walking Protein Drinks: Is trying and incorporating protein drinks premier Updated Goals for Next Visit: The patient encouraged to track consumption with 100 grams of protein, 100 grams or less of carbohydrates, and 60 gram or less of fat with 1350 calories daily. Recommendations: Continued to encourage patient in completion of short term goals of a healthy lifestyle. Will continue to modify and adjust patient short term goals throughout supervised nutritionalcounseling visits. * Progress Notes - Lubna Hardin APRN - 04/29/2025 10:30 AM EDT Reason for Visit Multiple co-morbidities related to their obesity. HPI 40 y/o female presents to follow up. She is being seen in evaluation for gastric bypass surgery. Her weight is down 4 pounds for follow up. She started Zepbound last month. She isn't sure if she can continue it as it has been causing headaches. She has been eating high protein/low fat/low carb. Sheis tracking her intake. She is not consuming carbonation or caffeine. She averages 108oz of water per day. She drinks 1-2 protein drinks per day. She exercises 20-26 minutes of exercise. She denies abdominal pain, nausea or vomiting. She denies fevers or chills. She denies new medications or medical dx since last visit. Current Weight: 117 kg (257 lb) Height: 1.803 m (5' 11 ) BMI: 35.84 kg/m?? Past Medical History[1] Surgical History[2] Allergies[3] Current Outpatient Medications Medication Instructions azelastine (Astelin) 0.1 % nasal spray No dose, route, or frequency recorded. buPROPion (Wellbutrin) 75 MG tablet 1 tablet, Daily Bystolic 5 mg, Daily cetirizine (ZYRTEC) 10 mg, Daily clonazePAM (KLONOPIN) 0.5 mg, 2 times daily fluticasone (Flonase) 50 MCG/ACT nasal spray 1 spray, Daily hydroCHLOROthiazide (HYDRODIURIL) 12.5 mg, Daily montelukast (SINGULAIR) 10 mg, Daily Synthroid 100 MCG tablet Voquezna 10 mg, Daily Zepbound 5 MG/0.5ML solution auto-injector inject 5 mg subcutaneously once weekly Family History[4] Social History[5] ROS 14 point ROS completed and negative except as noted in the HPI Objective Vitals: 04/29/25 1100 BP: 107/73 Pulse: 67 Resp: 16 SpO2: 98% PHYSICAL EXAM Constitutional: well developed, well nourished, in no acute distress, and obese Eyes: equal, round, and reactive Ears, Nose, Throat: normal atraumatic, no neck masses Respiratory: Normal Effort, Normal Rate Cardiac: Heart regular rate and rhythm Abdomen: Soft, non-tender; no organomegaly or masses. Genitourinary: not indicated Musculoskeletal: normal strength, tone, and muscle mass, no deformities Psychiatric: oriented to time, place and person, mood and affect are within normal limits Neurologic: motor intact and no focal deficits Skin: [place], warm, well perfused Assessment/Plan Diagnosis Plan 1. Obesity, Class II, BMI 35-39.9 Prealbumin 2. Primary hypertension 3. Gastroesophageal reflux disease, unspecified whether esophagitis present 4. Aneurysm of ascending aorta without rupture (CMS/HCC) Encouraged continued dietary modification and exercise as tolerated. Sleep medicine referral placed. Will see dietitian. Follow up in 1 month. [1] Past Medical History: Diagnosis Date Aneurysm (CMS/HCC) 2019 Anxiety 01-24-20 Cancer (CMS/HCC) Skin 2017 COVID-19 Disease of thyroid gland 2020 GERD (gastroesophageal reflux disease) 10-12-24 Heart disease 2020 Annerysum Hypothyroidism 2020 Thyroid Low back pain 17044 Pain in right knee Right knee pain Personal history of other diseases of the nervous system and sense organs History of migraine Personal history of other drug therapy COVID-19 vaccine series completed Urinary incontinence 2012 [2] Past Surgical History: Procedure Laterality Date ADENOIDECTOMY N/A CHOLECYSTECTOMY N/A GALLBLADDER SURGERY N/A KNEE SURGERY Right OTHER SURGICAL HISTORY Knee, adenoids, tonsils, skin cancer removed, gall bladder TONSILLECTOMY N/A TOTAL KNEE ARTHROPLASTY Right [3] Allergies Allergen Reactions Penicillins Hives [4] Family History Problem Relation Name Age of Onset Conversions - Other Other Abdominal aneurysm Conversions - Other Other Abdominal aneurysm Diabetes Mother Izzy Tolentino Hypertension Mother Izzy Tolentino Thyroid disease Mother Izzy Tolentino Hypertension Father Raymond Tolentino Lung cancer Maternal Grandmother FH: lung cancer [5] Social History Tobacco Use Smoking status: Former Current packs/day: 0.00 Average packs/day: 0.3 packs/day for 28.9 years (10.0 ttl pk-yrs) Types: Cigarettes Start date: 11/12/2000 Quit date: 08/12/2022 Years since quittin.7 Passive exposure: Past Smokeless tobacco: Never Vaping Use Vaping status: Never Used Substance Use Topics Alcohol use: Not Currently Drug use: Never documented in this encounter Plan of Treatment Upcoming Encounters Date Type Department Care Team (Late st Contact Info) Description 10/28/2026 12:20 PM EST Office Visit [facility] [address], [address] [place] [address] Kishan Metz MD [address] [place] [address] documented as of this encounter Results * Prealbumin (04/29/2025 11:44 AM EDT) Prealbumin, Plasma 23.0 20.0 - 41.0 mg/dL 04/29/2025 2:08 PM EDT [facility] Blood Venous blood specimen / Unknown Venipuncture / Unknown 04/29/2025 11:44 AM EDT 04/29/2025 11:44 AM EDT us Lubna Hardin APRN LAB BLOOD ORDERABLES Za jaret Result [facility] [address] [place] [address] documented in this encounter Visit Diagnoses Diagnosis Obesity, Class II, BMI 35-39.9- Primary Primary hypertension Unspecified essential hypertension Gastroesophageal reflux disease, unspecified whether esophagitis present Aneurysm of ascending aorta without rupture (CMS/HCC) documented in this encounter Additional Health Concerns Assessment Noted Time PHQ-9 Depression Total Score: 0 04/29/20 25 11:01 AM EDT A fall risk assessment has been complete d for the patient 04/29/2025 11:01 AM EDT A Body Mass Index follow-up plan has been documented for the patient 05/01/2025 10:18 AM EDT documented as of this encounter Care Teams Pediatric Radiologist Relationship Specialty Start Date End Date Phoebe Nguyen APRN [address] [place] [address] PCP - General 11/28/22 documented as of this encounter
--- OUTSIDE RECORDS SUMMARY | 2025-05-22 10:45 | XMS_ITS | Encounter Summary ---
Author Organization Healthcare Address [address] [place] [address] Care Team Providers Care Furniture Manager Name Role Phone Phoebe Nguyen MARGARINE MAKER Primary Care Provider [phone]- [phone] Encounter Details Date Type Department Care Team (Late st Contact Info) Description 05/22/2025 10:45 AM EDT Office Visit [facility] General & Weight Loss Surgery [address] [place] [id number] Lubna Hardin, MARGARINE MAKER [address] [address] Obesity, Class II, BMI 35-39.9 (Primary Dx); Nutritional counseling [Z71.3]; Primary hypertension; Gastroesophageal reflux disease, unspecified whether [...] Date Recorded Patient Health Questionnaire-2 Score 0 05/22/2025 PHQ-9 Answer Date Recorded Patient Health Questionnaire-9 Score 0 05/22/2025 Comments Unknown Sex and Gender Information Value [...] Sign Reading Time Taken Comments Blood Pressure 114/77 05/22/2025 10:45 AM EDT Pulse 75 05/22/2025 10:45 AM EDT Temperature - - Respiratory Rate 16 05/22/2025 10:45 AM EDT Oxygen Saturation 99% 05/22/2025 10:45 AM EDT Inhaled Oxygen Concentration - - Weight 115 kg (252 lb 12.8 oz) 05/22/2025 10:45 AM EDT Height 180.3 cm (5' 11 ) 05/22/2025 10:45 AM EDT Body Mass Index 35.26 05/22/2025 10:45 AM EDT documented in this encounter Functional Status * Over the past 2 weeks, how often have you been bothered by any of the following problems? Question Answer Date of Assessment Author Little interest or pleasure in doing things Not at all 05/22/2025 10:46 AM EDT Varsha Ace Feeling down, depressed, or hopeless Not at all 05/22/2025 10:46 AM EDT Varsha Pacheco Patient Health Questionnaire-2 Score 0 05/22/2025 10:46 AM EDT Varsha Shields * Question Answer Date of Assessment Author Trouble falling or staying asleep, or sleeping too much Not at all 05/22/2025 10:46 AM EDT Varsha Yi Feeling tired or having little energy Not at all 05/22/2025 10:46 AM EDT Varsha Pacheco Poor appetite or overeating Not at all 05/22/2025 10 :46 AM EDT Varsha Pacheco Feeling bad about yourself - or that you are a failure or have let yourself or your family down Not at all 05/22/2025 10:46 AM EDT Varsha Pacheco Trouble concentrating on things, such as reading the newspaper or watching television Not at all 05/22/2025 10:46 AM EDT Varsha Pacheco Moving or speaking so slowly that other people could have noticed? Or the opposite - being so fidgety or restless that you have been moving around a lot more than usual. Not at all 05/22/2025 10:46 AM JOSE MANUELT Varsha Pacheco Thoughts that you would be better off or hurting yourself in some way Not at all 05/22/2025 10:46 AM EDT Varsha Pacheco Patient Health Questionnaire-9 Score 0 05/22/2025 10:46 AM EDT Varsha Shields * If you checked off any problems on this questionnaire so far, Question Answer Date of Assessment Author How difficult have these problems made it for you to do your work, take care of things at home, or get along with other people? Not difficult at all 05/22/2025 10:46 AM JOSE MANUELT Varsha Pacheco documented as of this encounter Miscellaneous Notes * Progress Notes - Kelly Corrales, DANE - 05/22/2025 10:45 AM EDT Dory Jimenez, 1985, presents today for participation of medically supervised weight loss surgery program including nutritional counseling. Tanita Scale Results: Current Weight: 252.8 lbs. Fat %: 46.1% Fat Mass: 116.6 lbs. FFM: 136.2 lbs. TBW: 100.0 lbs. TBW %: 39.6% BMR: 1932 kcal BMI: 35.26 kg/m?? body composition results were discussed and reviewed to the patient Consult Weight: 264.4 lbs. Previous Visit/Weight: 04/29/2025 - 257.0 lbs. Weight Change Since Consult Visit: decrease of 11.6 lbs. Weight Change Since Previous Visit: decrease of 4.2 lbs. Dory Jimenez is tracking consumption through the [employer]. The patient noted that she is currently on zepbound injections; but due to the injections she is continuing to lose weight and may not be approved for surgery due to potentially being below 35 BMI (is averaging below 900 calories daily but BMR is around 1900 calories daily). The patient was informed to consume a meal during each meal period; due to stating that she only eats one time a day. The patient encouraged to track consumption with 100 grams of protein, 100 grams of carbohydrates, and 60 gram of fat with 1350calories daily. Tracking Source: [employer] [facility] Reviewed Average Days: 3 Protein: 90 grams Fat: 32 grams Carbohydrates: 56 grams Calories: 867 kcal Fluid Ounces: 108 fluid ounces Changes Made Since Previous Visit: Carbonation: is not consuming carbonation Caffeine: is not consuming caffeine Sugary Drinks: is not consuming sugary drinks Fluid Window: is practicing the fluid window, currently 30 min before meals and 30 min after meals Portion Control: is reducing portion sizes Exercise: is dedicating specific time to exercise including walking Protein Drinks: is trying and incorporating protein drinks, such as premier protein and herbal life Updated Goals for Next Visit: To track consumption consistently with 100 grams of protein, 100 grams of carbohydrates, and 60 gram of fat with 1350 calories daily Recommendations: Continued to encourage patient in completion of short term goals of a healthy lifestyle. Will continue to modify and adjust patient short term goals throughout supervised nutritionalcounseling visits. * Progress Notes - Lubna Hardin APRN - 05/22/2025 10:45 AM EDT Reason for Visit Multiple co-morbidities related to their obesity. HPI 40 y/o female presents for follow up. She is being seen in evaluation for gastric bypass surgery. Her weight is down 5 pounds from last visit. She is following a high protein/low carb diet. She is tracking her intake. She drinks 1-2 protein drinks per day. She averages 108oz of water per day. She is not consuming carbonation or caffeine. She has been walking throughout the day. She denies abdominal pain, nausea or vomiting. She denies fevers or chills. Current Weight: 115 kg (252 lb 12.8 oz) Height: 1.803 m (5' 11 ) BMI: 35.26 kg/m?? Past Medical History[1] Surgical History[2] Allergies[3] Current Outpatient Medications Medication Instructions azelastine (Astelin) 0.1 % nasal spray No dose, route, or frequency recorded. buPROPion (Wellbutrin) 75 MG tablet 1 tablet, Daily Bystolic 5 mg, Daily clonazePAM (KLONOPIN) 0.5 mg, 2 times daily fluticasone (Flonase) 50 MCG/ACT nasal spray 1 spray, Daily hydroCHLOROthiazide (HYDRODIURIL) 12.5 mg, Daily levocetirizine (XYZAL) 5 mg, Every evening montelukast (SINGULAIR) 10 mg, Daily Synthroid 100 MCG tablet Voquezna 10 mg, Daily Zepbound 5 MG/0.5ML solution auto-injector inject 5 mg subcutaneously once weekly Family History[4] Social History[5] ROS 14 point ROS completed and negative except as noted in the HPI Objective Vitals: 05/22/25 1045 BP: 114/77 Pulse: 75 Resp: 16 SpO2: 99% PHYSICAL EXAM Constitutional: well developed, well nourished, [...] motor intact and no focal deficits Skin: [place], warm, well perfused Assessment/Plan Diagnosis Plan 1. Obesity, Class II, BMI 35-39.9 2. Nutritional counseling [Z71.3] 3. Primary hypertension 4. Gastroesophageal reflux disease, unspecified whether esophagitis present 5. Aneurysm of ascending aorta without rupture (CMS/HCC) Encouraged continued dietary modification and exercise as tolerated. Will see dietitian. Follow up in 1 month. [1] Past Medical History: Diagnosis Date Aneurysm (CMS/HCC) 2019 Anxiety 01-25-20 Cancer (CMS/HCC) Skin 2017 COVID-19 Disease of thyroid gland 2020 GERD (gastroesophageal reflux disease) 10-12-24 Heart disease 2020 [place] Hypothyroidism 2020 Thyroid Low back pain [address]856 Pain in right knee Right knee pain [...] Description 10/28/2026 12:20 PM EST Office Visit [facility] Cardi[facility]acic [address], [address] [address] Kishan Metz MD [address] [address] documented as of this encounter Visit Diagnoses Diagnosis Obesity, Class II, BMI 35-39.9- Primary Nutritional counseling [Z71.3] Primary hypertension Unspecified essential hypertension Gastroesophageal reflux disease, unspecified whether esophagitis present Aneurysm of ascending aorta without rupture (CMS/HCC) documented in this encounter Additional Health Concerns Assessment Noted Time PHQ-9 Depression Total Score: 0 05/22/20 25 10:46 AM EDT A fall risk assessment has been complete d for the patient 05/22/2025 10:47 AM EDT A Body Mass Index follow-up plan has been documented for the patient 05/28/2025 9:29 AM EDT documented as of this encounter Care Teams Furniture Manager Relationship Specialty Start Date End Date Phoebe Nguyen APRN [address] [place] [address] PCP - General 11/28/22 documented as of this encounter
--- OUTSIDE RECORDS SUMMARY | 2025-06-22 14:13 | XMS_ITS | Encounter Summary ---
Author Organization Healthcare Address [address] [place] [address] Care Team Providers Care Community Integration Specialist Name Role Phone Phoebe Nguyen SALVADOR Primary Care Provider [phone]- [phone] Encounter Details Date Type Department Care Team (Latest Contact Info) Description 05/22/2025 Travel Social History Tobacco Use Types Packs/Day Years Used Date Smoking Tobacco: Former Cigarettes 0.3 28.9 0 11/12/2000 - 08/12/2022 Passive Smoke Exposure: Past Smokeless Tobacco: Never Alcohol Use Standard Drinks/Week Comments Not Currently [...] on file documented as of this encounter Functional Status * Over the [...] down Not at all 05/22/2025 10:46 AM JOSE MANUELT Varsha Pacheco Trouble concentrating on things, such as reading the newspaper or watching television Not at all 05/22/2025 10:46 AM JOSE MANUELT Varsha Pacheco Moving or speaking so slowly that other people could have noticed? Or the opposite - being so fidgety or restless that you have been moving around a lot more than usual. Not at all 05/22/2025 10:46 AM JOSE MANUELT Varsha Pacheco Thoughts that you would be better off or hurting yourself in some way Not at all 05/22/2025 10:46 AM Varsha Christina Patient Health Questionnaire-9 Score 0 05/22/2025 10:46 AM JOSE MANUELT Varsha Shields * If you checked off any problems on this questionnaire so far, Question Answer Date of Assessment Author How difficult have these problems made it for you to do your work, take care of things at home, or get along with other people? Not difficult at all 05/22/2025 10:46 AM Varsha Christina documented as of this encounter Plan of Treatment Upcoming Encounters Date Type Department Care Team (Late st Contact Info) Description 10/28/2026 12:20 PM EST Office Visit [facility] Cardiothoracic [address], [facility] [address] [place] [phone] Kishan Metz MD [address] [facility] [address] [place] [address] documented as of this encounter Visit Diagnoses Not on filedocumented in this encounter Additional Health Concerns Assessment Noted Time PHQ-9 Depression Total Score: 0 05/22/20 25 10:46 AM EDT A fall risk assessment has been complete d for the patient 05/22/2025 10:47 AM EDT A Body Mass Index follow-up plan has been documented for the patient 05/28/2025 9:29 AM EDT documented as of this encounter Care Teams Community Integration Specialist Relationship Specialty Start Date End Date Phoebe Nguyen APRN [address] [place] [phone] PCP - General 11/28/22 documented as of this encounter
--- OUTSIDE RECORDS SUMMARY | 2025-06-22 14:13 | XMS_ITS | Clinical Summary ---
Author Organization [facility] Address [address] [place] [address] Care Team Providers Care Countersinker Balance Screw Hole Name Role Phone Phoebe Nguyen SALVADOR Primary Care Provider +1- [phone] Allergies Active Allergy Reactions Criticality Noted Date Comments Penicillins Hives Medium 04/21/2021 Medications clonazePAM (KlonoPIN) 0.5 MG tablet 1 tablet 2 times a day. 1 Active fluticasone (Flonase) 50 MCG/ACT nasal spray 1 spray daily. 0 Active hydroCHLOROthi azide (HYDRODiuril) 12.5 MG tablet 1 tablet daily. 1 Active Bystolic 5 MG tablet 1 tablet daily. 1 Active azelastine (Astelin) 0.1 % nasal spray 3 Active montelukast (Singulair) 10 MG tablet 1 tablet daily. 3 Active buPROPion (Wellbutrin) 75 MG tablet Take 1 tablet by mouth daily. Active Vonoprazan Fumarate (Voquezna) 10 MG tablet Take 1 tablet by mouth daily. Active Synthroid 100 MCG tablet 5 Active Zepbound 5 MG/0.5ML solution auto-injector inject 5 mg subcutaneously once weekly 5 Active levocetirizine (Xyzal) 5 MG tablet Take 1 tablet by mouth every evening. 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 (08/24/2021): Other specified malignant neoplasm of skin, unspecified Encounters Date Type Department Care Team Description 05/22/2025 10:45 AM EDT Office Visit [facility] [address] [place] [address] Lubna Hardin APRN Obesity, Class II, BMI 35-39.9 (Primary Dx); Nutritional counseling [Z71.3]; Primary hypertension; Gastroesophageal reflux disease, unspecified whether esophagitis present; Aneurysm of ascending aorta without rupture (CMS/HCC) 05/22/2025 Travel 04/29/2025 10:30 AM EDT Office Visit [facility] [address] [place] [address] Lubna Hardin APRN Obesity, Class II, BMI 35-39.9 (Primary Dx); Primary hypertension; Gastroesophageal reflux disease, unspecified whether esophagitis present; Aneurysm of ascending aorta without rupture (CMS/HCC) 04/29/2025 Travel 04/28/2025 Orders Only [facility] [place] [address] Lubna Hardin APRN Pre-op evaluation (Primary Dx) 04/24/2025 Telephone [facility] [address] [place], [place] [address] [address] Stephan Torres MD 04/15/2025 10:30 AM EDT Office Visit [facility] [place] [address] Lubna Hardin APRN Obesity (BMI 30-39.9) [E66.9] (Primary Dx); Primary hypertension; Gastroesophageal reflux disease, unspecified whether esophagitis present 04/15/2025 Travel 04/08/2025 12:54 PM EDT Anesthesia Event [facility] [address] [place] [address] Baljit Rollins MD 04/08/2025 11:09 AM EDT - 04/08/2025 11:59 PM EDT Hospital Encounter [facility] [address] [place] [address] Sadi Jin MD Jovero, [place], RN Obesity (BMI 30-39.9); Primary hypertension; Gastroesophageal reflux disease, unspecified whether esophagitis present Discharge Disposition: Home or Self Care 04/08/2025 Travel from Last 3 Months Immunizations Immunization Administration Dates Next Due Cher COVID-19 Vaccine (Blue Cap) 18+ 01/20/20 21 Family History Medical History Relation Name Comments Hypertension Father Raymond Tolentino Lung cancer Maternal Grandmother FH: krista g cancer Diabetes Mother Izzy Tolentino Hypertension Mother Izzy Tolentino Thyroid disease Mother Izzy Tolentino Conversions - Other Other 1 Abdomina l aneurysm Conversions - Other Other 2 Abdomina l aneurysm Relation Name Status Comments Father Raymond Tolentino Maternal Grandmother Mother Izzy Tolentino Other 1 Other 2 Social History Tobacco Use Types Packs/Day Years [...] file Not on file Not on file Last Filed Vital Signs Vital Sign Reading Time Taken Comments Blood Pressure 114/77 05/22/2025 10:45 AM EDT Pulse 75 05/22/2025 10:45 AM EDT Temperature 36.3 C (97.3 F) 04/08/2025 1:18 PM EDT Respiratory Rate 16 05/22/2025 10:45 AM EDT Oxygen Saturation 99% 05/22/2025 10:45 AM EDT Inhaled Oxygen Concentration - - Weight 115 kg (252 lb 12.8 oz) 05/22/2025 10:45 AM EDT Height 180.3 cm (5' 11 ) 05/22/2025 10:45 AM EDT Body Mass Index 35.26 05/22/2025 10:45 AM EDT Plan of Treatment Upcoming Encounters Date Type Department Care Team (Late st Contact Info) Description 10/28/2026 12:20 PM EST Office Visit [facility] [address], [address] [place] [address] Kishan Metz MD [address] [place] [address] Health Maintenance Due Date Last Done Comments [facility]-HIV Screening 1985 [facility]-Hepatitis C Screening 1985 [facility]-Infant/Child/Adol SDOH Screenings 1985 [facility]-Varicella Vaccines (1 of 2 - 13+ 2-dose series) 1998 [facility]- SDOH Screenings 2003 [facility]-Adult SDOH Screenings 2003 [facility]-DTaP,Tdap,and Td Vaccines (1 - Tdap) 02/19/2004 [facility]-Hepatitis B Vaccines (1 of 3 - 19+ 3-dose series) 02/19/2004 [facility]-Pneumococcal Vaccine: Pediatrics (0 to 5 Years) and At-Risk Patients (6 to 49 Years) (1 of 2 - PCV) 02/19/2004 [facility]-Zoster Vaccines (1 of 2) 02/19/2004 [facility]-Pap Smear 2006 HPV Vaccines (1 - Risk 3-dose SCDM series) 02/19/2012 [facility]-Cervical Cancer Screening 2015 [facility]-HPV/Cotest 2015 [id number]-40 Vaccine (2 - Cher risk series) 02/16/2021 01/19/2021 [facility]-Influenza Vaccine (#1) 2025 [facility]-Diabetes: Hemoglobin A1C 02/10/2026 02/10/2025 [facility]-Depression Screening 05/22/2026 05/22/2025, 05/12 [facility]-Obesity Intervention Completed 025, 04/29/2025, 04/15/2025, Additional history exists [facility]-HIB Vaccines Aged Out No longer e ligible based on patient's age to complete this topic [facility]-Hepatitis A Vaccines Aged Out No longer eligible based on patient's age to complete this topic [facility]-IPV Vaccines Aged Out No longer e ligible based on patient's age to complete this topic [facility]-Rotavirus Vaccines Aged Out No lo nger eligible based on patient's age to complete this topic Procedures Procedure Name Priority Date/Time Associated Diagnosis Comments PREALBUMIN, PLASMA Routine 04/29/2025 11 :44 AM EDT Obesity, Class II, BMI 35-39.9 EGD Routine 04/08/2025 1:14 PM EDT Obesity (BMI 30-39.9) Primary hypertension Gastroesophageal reflux disease, unspecified whether esophagitis present SURGICAL PATHOLOGY EXAM Routine 04/08/2025 1:06 PM EDT Obesity (BMI 30-39.9) Primary hypertension Gastroesophageal reflux disease, unspecified whether esophagitis present POCT , URINE Routine 04/08/2025 11:47 AM EDT HEMOGLOBIN A1C Routine 02/10/2025 10:56 AM EDT Obesity (BMI 30-39.9) Primary hypertension Gastroesophageal reflux disease, unspecified whether esophagitis present from Last 3 Months or Most Recently Relevant to Health Maintenance Results * Prealbumin (04/29/2025 11:44 AM EDT) Prealbumin, Plasma 23.0 20.0 - 41.0 mg/dL 04/29/2025 2:08 PM EDT [facility] Blood Venous blood specimen / Unknown Venipuncture / Unknown 04/29/2025 11:44 AM EDT 04/29/2025 11:44 AM EDT us Lubna Hardin CRITICAL POWER TECHNICIAN LAB BLOOD ORDERABLES Za raygoza Result [facility] [address] [place] [address] * EGD (04/08/2025 1:14 PM EDT) Anatomical Region Laterality Modality Endoscopy Narrative 04/08/2025 1:21 PM EDT Table formatting from the original result was not included. Impression: J shaped stomach. Possible small sliding hiatal hernia based on antegrade assessment. Mild patchy gastritis involving distal body and antrum. Post Procedure Diagnosis None Recommendations Await pathology results Follow up in bariatric surgery clinic as scheduled. Indication Primary hypertension, Obesity (BMI 30-39.9), Gastroesophageal reflux disease, unspecified whether esophagitis present Medications See anesthesia record for anesthesia administered medications. Staff Staff Role Baljit Rollins MD Anesthesiologist Cornelia Fulton, RATINGS ANALYST Sadi Archer MD Proceduralist Arnaldo Burdick, RN Endo Nurse Sebastian Clemente Endo Vehicle Window Tinter Preprocedure A history and physical has been performed, and patient medication allergies have been reviewed. The patient's tolerance of previous anesthesia has been reviewed. The risks and benefits of the procedure and the sedation options and risks were discussed with the patient. All questions were answered and informed consent obtained. Details of the Procedure The patient underwent monitored anesthesia care, which was administered by an anesthesia professional. The patient's blood pressure, heart rate, level of consciousness, oxygen and respirations were monitored throughout the procedure. The scope was introduced through the mouth and advanced to the second part of the duodenum. Retroflexion was performed in the cardia. Prior to the procedure, the patient's H. Pylori status was unknown. The patient experienced no blood loss. The procedure was not difficult. The patient tolerated the procedure well. There were no apparent adverse events. Attestation I personally performed the entire procedure Specimens ID Type Source Tests Collected by Time A : gastric antrum bx Tissue Stomach SURGICAL PATHOLOGY EXAM Sadi Jin MD 04/08/2025 1306 Findings The cricopharynx, upper third of the esophagus, middle third of the esophagus, lower third of the esophagus, Z-line, fundus of the stomach, greater curve of the stomach, duodenal bulb, 1st part of the duodenum and 2nd part of the duodenum appeared normal. Z-line is 38 cm from the incisors. J shaped stomach. Small amount of bile in stomach. Possible small sliding hiatal hernia, diaphragm impression at 40 cm. Mild, patchy erythematous mucosa in the body of the stomach and antrum, consistent with gastritis; performed cold forceps biopsy to rule out H. pylori us Sadi Jin MD GI PROCEDURE ORDERABLES Final Re sult * Surgical Pathology Exam (04/08/2025 1:06 PM EDT) Case Report Surgical Pathology Case: [id number] Authorizing Provider: aSdi Jin MD Collected: 04/08/2025 1306 Ordering Location: [facility] Endoscopy Received: 04/08/2025 1519 Pathologist: Mary Fournier MD Specimen: Stomach, gastric antrum bx 04/09/2025 11:06 AM EDT [facility] Final Diagnosis STOMACH, ANTRUM, BIOPSY: - REACTIVE GASTROPATHY. - NO H. PYLORI ORGANISMS IDENTIFIED ON H&E SLIDE. 04/09/2025 11:06 AM EDT [facility] at 1106 EDT Clinical Information E66.9 - Obesity (BMI 30-39.9) [ICD-10-CM] I10 - Primary hypertension [ICD-10-CM] K21.9 - Gastroesophageal reflux disease, unspecified whether esophagitis present [ICD-10-CM] J shaped stomach Mild patchy gastritis involving distal body and antrum 04/09/2025 11:06 AM EDT [facility] Gross Description A. GASTRIC ANTRUM BX Received in formalin labeled gastric antrum biopsy are 2 james-brown soft tissue fragments measuring 0.6-0.7 cm in greatest dimension. Entirely submitted in cassette A1. Cold Time: <1m Cherie Govea 04/09/2025 11:06 AM EDT [facility] Note: A resident was involved in the service. I attest I examined the relevant preparations for the specimens and confirmed the diagnosis or interpretation. 04/09/2025 11:06 AM EDT [facility] Tissue Stomach structure / Unknown 04/08/2025 1:06 PM EDT 04/08/2025 3:19 PM EDT us Sadi Jin MD LAB PATHOLOGY ORDERABLES Final R esult Performing Organization Address City/[facility]/ZIP Co de Phone Number [facility] [address] [place] [address] * POCT , URINE (04/08/2025 11:47 AM EDT) POCT Test, Urine Negative Males and Non- Females: Negative 04/08/2025 11:53 AM EDT [facility] Debt Recovery Officer ID Maninder Doan 04/08/2025 11:53 AM EDT HEALTHCARE LAB Device ID [id number] 04/08/2025 11:53 AM EDT [facility] Urine Urine specimen obtained by clean catch procedure / Unknown 04/08/2025 11:47 AM EDT 04/08/2025 11:53 AM EDT us Sadi Jin MD LAB POINT OF CARE TE ST DOCKED DEVICE UNSOLICITED RESULTS Final Result Performing Organization Address City/[facility] Co de Phone Number [facility] [address] [place] [address] * (ABNORMAL) Hemoglobin A1c (02/10/2025 10:56 AM EDT) Hemoglobin A1c 6.3(H) <5.7 % 02/10/2025 3:52 PM EDT [facility] Blood Venous blood specimen / Unknown Venipuncture / Unknown 02/10/2025 10:56 AM EDT 02/10/2025 10:56 AM EDT Narrative [facility] - 02/10/2025 3:52 PM EDT HA1C Interpretive Data: Diagnosis of Diabetes: Diabetic > or = 6.5% Pre-diabetic 5.7 to 6.4% Non-diabetic < or = 5.6% Glycemic Targets for Type I and Type II Diabetics: Non- Adults <7.0% Adults <6.0% Children and Adolescents <7.5% Source: [place] [employer]. Standards of medical care in diabetes,2017. Diabetes Care.2017:40 (suppl 1):S1-S135. HbA1c assay performed by an ion-exchange chromatography method that is certified traceable to the DCCT. us Sadi Jin MD LAB BLOOD ORDERABLES Final Resul t [facility] [address] [place] [address] from Last 3 Months or Most Recently Relevant to Health Maintenance Insurance ANTHEM Care Teams Countersinker Balance Screw Hole Relationship Specialty Start Date End Date Phoebe Nguyen APRN [address] [place] [id number] PCP - General 11/28/22
--- OUTSIDE RECORDS SUMMARY | 2025-06-22 14:13 | XMS_ITS | Encounter Summary ---
Author Organization Healthcare Address [address] [place] [address] Care Team Providers Care Windows Application Administrator Name Role Phone Phoebe jeff SALVADOR Primary Care Provider +1- [phone] Reason for Referral * Consultation (Routine) - Authorized Specialty Diagnoses / Procedures Referred By Kandis nagel Referred To Contact Sleep Medicine Diagnoses Pre-op evaluation Lubna Hardin APRN [address] [address] Phone: tel: fax: [facility] [address] [address] [place] [address] Phone: tel: fax: Referral ID Status Reason Start Date Expiration Date Visits Requested Visits Authorized [id number] Authorized Specialty Services Required 04/28/2025 10/28/2026 1 1 Encounter Details Date Type Department Care Team (Late st Contact Info) Description 04/28/2025 Orders Only [facility] [address] [place] [address] Lubna Hardin APRN [address] [address] Pre-op evaluation (Primary Dx) Social History Tobacco Use Types Packs/Day Years [...] on file documented as of this encounter Plan of Treatment Upcoming Encounters Date Type Department Care Team (Late st Contact Info) Description 10/28/2026 12:20 PM EST Office Visit [facility] [address], [address] [place] [address] Kishan Metz MD [address] [place] [address] Scheduled Referrals Name Type Priority Associated Diagnoses Order Schedule Ambulatory referral to Adult Sleep Medicine Outpatient Referral Routine Pre-op evaluation Expected: 04/28/2025 (Approximate), Expires: 10/30/2026 documented as of this encounter Visit Diagnoses Diagnosis Pre-op evaluation- Primary documented in this encounter Additional Health Concerns Assessment Noted Time PHQ-9 Depression Total Score: 0 04/15/20 10:24 AM EDT A fall risk assessment has been complete d for the patient 04/15/2025 10:24 AM EDT A Body Mass Index follow-up plan has been documented for the patient 04/16/2025 11:25 AM EDT documented as of this encounter Care Teams Windows Application Administrator Relationship Specialty Start Date End Date Phoebe Nguyen APRN [address] [place] [phone] PCP - General 11/28/22 documented as of this encounter
--- OUTSIDE RECORDS SUMMARY | 2025-06-22 14:13 | XMS_ITS | Encounter Summary ---
Author Organization Healthcare Address [address] [place] [address] Care Team Providers Care Supervisor Shop Name Role Phone Phoebe Nguyen SALVADOR Primary Care Provider +1- [phone] Encounter Details Date Type Department Care Team (Late st Contact Info) Description 04/24/[address] [facility] [address] [place] [address] Stephan Torres MD Social History Tobacco Use Types Packs/Day Years Used Date Smoking Tobacco: Former Cigarettes 0.3 28.9 0 11/12/2000 - 08/12/2022 Passive Smoke Exposure: Past Smokeless Tobacco: Never Alcohol Use Standard Drinks/Week Comments Not Currently 0 (1 standard drink = 0.6 oz pur e alcohol) PHQ-2 Answer Date Recorded Patient Health Questionnaire-2 Score 0 04/15/2025 PHQ-9 Answer Date Recorded Patient Health Questionnaire-9 Score 0 04/15/2025 Comments Unknown Sex and Gender Information Value Date Recorded Sex Assigned at Not on file Legal Sex Female 8:07 PM EDT Gender Identity Not on file Sexual Orientation Not on file Occupation Industry Job Start Date Job End Date Not on file Not on file Not on file Not on file documented as of this encounter Miscellaneous Notes * Telephone Encounter - Laxmi Marie N - 04/24/2025 12:18 PM EDT Talked to pt regarding insurance denying her weightloss surgery. She is going to call them her selfto see if she can change anything on her end. Did let her know we will have to cancel if we do not get the approval by Sunday. She understood and stated she would call me back to update me. documented in this encounter Plan of Treatment Upcoming Encounters Date Type Department Care Team (Late st Contact Info) Description 10/28/2026 12:20 PM EST Office Visit [facility] [address], [address] [place] [address] Kishan Metz MD [address] [place] [address] documented as of this encounter Visit [...] documented as of this encounter Care Teams Supervisor Shop Relationship Specialty Start Date End Date Phoebe Nguyen APRN [address] [place] [address] PCP - General 11/28/22 documented as of this encounter
--- OUTSIDE RECORDS SUMMARY | 2025-06-22 14:13 | XMS_ITS | Encounter Summary ---
Author Organization Healthcare Address [address] [place] [address] Care Team Providers Care Adobe Developer Name Role Phone Phoebe Nguyen SALVADOR Primary Care Provider +1- [phone] Encounter Details Date Type Department Care Team (Latest Contact Info) Description 04/29/2025 Travel Social History Tobacco Use Types Packs/Day [...] down Not at all 04/29/2025 11:01 AM JOSE MANUELT Varsha Pacheco Trouble concentrating on things, such as reading the newspaper or watching television Not at all 04/29/2025 11:01 AM JOSE MANUELT Varsha Pacheco Moving or speaking so slowly that other people could have noticed? Or the opposite - being so fidgety or restless that you have been moving around a lot more than usual. Not at all 04/29/2025 11:01 AM JOSE MANUELT Varsha Pacheco Thoughts that you would be better off or hurting yourself in some way Not at all 04/29/2025 11:01 AM Varsha Christina Patient Health Questionnaire-9 Score 0 04/29/2025 11:01 AM JOSE MANUELT Varsha Shields * If you checked off any problems on this questionnaire so far, Question Answer Date of Assessment Author How difficult have these problems made it for you to do your work, take care of things at home, or get along with other people? Not difficult at all 04/29/2025 11:01 AM Varsha Christina documented as of this encounter Plan of Treatment Upcoming Encounters Date Type Department Care Team (Late st Contact Info) Description 10/28/2026 12:20 PM EST Office Visit [facility] [address], [facility] [address] [place] [phone] Kishan Metz MD [address] [place] [address] documented as of this encounter Visit Diagnoses [...] documented as of this encounter Care Teams Adobe Developer Relationship Specialty Start Date End Date Phoebe Nguyen APRN [address] [place] [phone] PCP - General 11/28/22 documented as of this encounter
== END ==
LOC: SL 14:00
PROVIDERS: PCP Nurse Practitioner Family; Visit Provider Nurse Practitioner Family
DX: G47.33 Obstructive sleep apnea (adult) (pediatric) (principal)
CPT/HCPCS: G0399